=== PATIENT | female | born 1970 | race Caucasian/White ===

== ENCOUNTER 2024-04-01 16:29 | Inpatient (IN) | payer OTHER, SELFPAY ==
[2024-04-01] VITALS (29 sets, daily range): BP systolic 147–180; BP diastolic 92–115; PULSE 94–110; TEMP 36.9–37.2; O2SAT 97–100; BMI 40.1
--- NOTE | 2024-04-01 16:35 | ECG_ITS ---
[facility] Test Date: 2024-04-01 Pat Name: Chelsie Jolly Department: Room: - Gender: Female [employer] Instrument [employer]r: : 1970 Requested By: BENY HERNANDEZ Order Number: [id number] Reading MD: ELYSSA BECK Measurements Intervals [place] Rate: 104 P: -27 NV: 108 QRS: 31 QRSD: 78 T: 33 QT: 374 QTc: 434 Interpretive Statements 1120 Sinus tachycardia 2210 Short NV interval 9150 abnormal ECG Compared to ECG 08/26/2022 10:43:14 Short NV interval now present Sinus rhythm no longer present Electronically Signed On 04-02-2024 13:19:58 EDT by ELYSSA BECK
--- NOTE | 2024-04-01 16:35 | XR_ITS ---
The [address] [address] Patient Name: RAMON VALDES MRN: [id number] date: 1970 Sex: F Assigned Patient Location: ER Current Patient Location: ED.MAIN Accession/Order Number: [id number] Exam Date: 04/01/2024 16:55 Report Date: 04/01/2024 17:48 At the request of: MICHELLE ROTH Procedure: XR chest 1V CXR HISTORY: Dizziness. COMPARISON: None. TECHNIQUE: 1 view chest submitted for review. FINDINGS: The lungs are adequately expanded without evidence of acute infiltrate or effusion. The cardiac silhouette measures within normal. Pulmonary vascularity is unremarkable. Osseous structures do not demonstrate any acute abnormality. XR/XR chest 1V IMPRESSION: No plain film evidence for acute cardiopulmonary disease. Electronically authenticated by: OLIVIA SAMANIEGO Date: 04/01/2024 17:48
--- NOTE | 2024-04-01 16:36 | CT_ITS ---
[address] [address] Patient Name: RAMON VALDES MRN: [id number] date: 1970 Sex: F Assigned Patient Location: ER Current Patient Location: .[facility] Accession/Order Number: [id number] Exam Date: 04/01/2024 16:55 Report Date: 04/01/2024 17:27 At the request of: MICHELLE ROTH Procedure: CT head/brain wo con EXAM: CT head/brain wo con HISTORY: Syncope COMPARISON: CT brain 12/29/2022. TECHNIQUE: Axial CT scans through the head were obtained without IV contrast administration. Dose reduction techniques were achieved by using: automated exposure control and/or adjustment of mA and /or kV according to patient size and/or use of iterative reconstruction technique. FINDINGS: There is no evidence of acute intracranial hemorrhage or abnormal extra-axial fluid collection. No mass effect or midline shift is seen. There is no evidence of large acute territorial infarction. There is no hydrocephalus. To the limit of CT, the posterior fossa appears unremarkable. There is mildly enlarged empty sella. No definite acute fracture is identified. Soft tissues are unremarkable. The visualized orbits show no abnormality. The visualized paranasal sinuses show no air-fluid level. Mastoid air cells are clear. CT/CT head/brain wo con IMPRESSION: No CT evidence of acute intracranial abnormality. Empty sella. Electronically authenticated by: EVIN COLEU Date: 04/01/2024 17:27
--- NOTE | 2024-04-01 16:36 | ED.GENADUL1 ---
Documented by User: MARION Ruiz 04/01/24 21:58 HPI HPI - General Adult General Chief complaint: Nausea/Vomiting/Diarrhea Stated complaint: DIZZINESS, LIGHTHEADEDNESS Time Seen by Provider: 04/01/24 16:35 Source: patient History of Present Illness HPI narrative: Patient is a 54-year-old female With a history of hypertension, insulin-dependent diabetes, GERD brought to the emergency department by ambulance for the evaluation of lightheadedness, nausea and vomiting for the last 2 days. She has a history of insulin-dependent diabetes. She is visibly anxious and hyperventilating on arrival by EMS. EMS reports that the patient has not been taking her medications for the last 2 days due to the nausea and vomiting with generalized weakness. She was apparently hypotensive on their arrival. Patient states that she tried to give herself insulin today but could not because she keeps passing out. She denies chest pain, shortness of breath, fevers. No upper respiratory symptoms. She has not had any diarrhea. She states she is urinating without difficulty. No sick contacts in the home. She has a history of gastroparesis. She denies abdominal pain. Related Data Home Medications ?Medication ?Instructions ?Recorded ?Confirmed amitriptyline 10 mg tablet 10 mg PO .qhs 04/01/24 04/02/24 aspirin 81 mg tablet,delayed 81 mg PO .qd 04/01/24 04/02/24 release atorvastatin 10 mg tablet 10 mg PO .qd 04/01/24 04/02/24 cyclobenzaprine 10 mg tablet 10 mg PO BID PRN muscle spasm 04/01/24 04/02/24 docusate sodium 100 mg capsule 100 mg PO .qd 04/01/24 04/02/24 duloxetine 60 mg capsule,delayed 60 mg PO .amhs 04/01/24 04/02/24 release gabapentin 600 mg tablet 600 mg PO .q6 04/01/24 04/02/24 insulin glargine 100 unit/mL (3 35 unit subcut BID 04/01/24 04/02/24 mL) subcutaneous pen (Lantus Solostar U-100 Insulin) insulin lispro 100 unit/mL 10 unit subcut TIDWM 04/01/24 04/02/24 subcutaneous pen lisinopril 20 mg tablet 20 mg PO .qd 04/01/24 04/02/24 loratadine 10 mg tablet 10 mg PO .qd 04/01/24 04/02/24 metoclopramide HCl 10 mg tablet 10 mg PO .qd 04/01/24 04/02/24 omeprazole 20 mg capsule,delayed 20 mg PO .qd 04/01/24 04/02/24 release quetiapine 50 mg tablet 100 mg PO .qhs 04/01/24 04/02/24 tizanidine 4 mg tablet 4 mg PO .qhs PRN muscle spasticity 04/01/24 04/02/24 Previous Rx's ?Medication ?Instructions ?Recorded cefdinir 300 mg capsule 600 mg (2 x 300 mg) PO DAILY #20 04/05/24 caps metoprolol tartrate 50 mg tablet 50 mg PO BID #60 tabs 04/05/24 Allergies Allergy/AdvReac Type Severity Reaction Status Date / Time mustard Allergy Severe Anaphylaxis Verified 04/01/24 16:45 brown coating on advil Allergy Swelling Uncoded 04/01/24 16:45 of Lip/Tongue/Throat Opioid HPI Opioid Management Most Recent Opioid Data: Last Pain Scale 4 04/03/24 01:06 Last Pain Assessment 04/05/24 11:54 Last MAR Pain Assessment 04/04/24 19:46 Last ORT Total Score 0 04/02/24 12:04 Last ORT Risk Category Low Risk 04/02/24 12:04 Review of Systems ROS Constitutional Denies: fever or chills Ears, nose, mouth, and throat Denies: throat pain or nasal congestion Cardiovascular Denies: chest pain Respiratory Denies: shortness of breath or cough Gastrointestinal Reports: nausea and vomiting; Denies: abdominal pain or diarrhea Genitourinary Denies: painful urination Musculoskeletal Denies: back pain Integumentary/Breast Denies: rash Psychiatric Reports: anxiety Hematologic/Lymphatic Denies: easy bruising or easy bleeding [facility] Medical History Tobacco abuse ?Z72.0 - Tobacco use (ICD-10) Family History Other Family history of diabetes mellitus Heart disease Social History Highest level of school completed/degree received: high school graduate Exam Narrative Exam Narrative: Gen.: Awake, alert, in no distress Head: Normocephalic, atraumatic ENT: Moist mucous membranes Respiratory: No respiratory distress, lungs clear bilaterally Cardio: Regular rate and rhythm Gastrointestinal: Abdomen is soft, nondistended and nontender to palpation Extremities: Moves extremities equally Psych: Anxious, hyperventilating female Neuro: No focal neuro deficit Skin: Warm, dry, intact Constitutional Vital Signs, click to edit/add: Last Vital Signs Temp 98.1 F 04/05/24 11:54 Pulse 67 04/05/24 11:54 Resp 18 04/05/24 11:54 BP 116/74 04/05/24 11:54 Pulse Ox 95 04/05/24 11:54 O2 Del Method Room Air 04/05/24 11:54 Course Course Hospital Course: Patient admitted through the emergency room with severe fatigue, general myalgias, laboratory evaluation consistent with severe sepsis. He was started on IV antibiotics. She had elevated high-sensitivity troponin. Case was discussed with cardiology. With normal EKG they felt this was more likely related to the infectious process. Demand ischemia. She was placed on heparin drip however until a stress test was completed yesterday. She did pass the stress test but had significant reaction to the test itself. Significant hypertension. Difficult to maintain yesterday. Approximately 6 hours ago patient finally feels much improved. Her blood pressure is back to baseline. Her white cell count was significantly elevated this morning. This is possibly stress reaction from yesterday's events. Repeating CBC later this morning. If CBC is improving patient feels back to much improved but still somewhat fatigued, for her normal self. At this point she will be likely be discharged home later today if her white blood cell count is improving. Medications see list. Cultures pending for urinalysis can be followed up as an outpatient with her PCP. See PCP within the next week. Vital Signs Vital signs: Vital Signs Temperature 98.5 F 04/01/24 16:34 Pulse Rate 107 H 04/01/24 16:34 Respiratory Rate 32 H 04/01/24 16:34 Blood Pressure 147/92 H 04/01/24 16:34 Pulse Oximetry 100 04/01/24 16:34 Oxygen Delivery Method Room Air 04/01/24 16:34 Temperature 98.1 F 04/05/24 11:54 Pulse Rate 67 07/16/24 11:54 Respiratory Rate 18 04/05/24 11:54 Blood Pressure 116/74 04/05/24 11:54 Pulse Oximetry 95 04/05/24 11:54 Oxygen Delivery Method Room Air 04/05/24 11:54 Medical Decision Making MDM Narrative Medical decision making narrative: 2143: Arrival to the emergency department, patient was actively hyperventilating and anxious. She was given IV fluids, a total of 2 L. Blood pressure is stable in the ER, tachycardia has improved, she was given IV Reglan, Pepcid and Ativan. CT of the brain, chest x-ray, EKG, lab studies were obtained. We did have significant difficulty establishing IV access for the patient and she required 2 ultrasound-guided IVs as one of the IVs infiltrated. Blood culture obtained, procalcitonin was not able to be run due to a machine issue. Initial lactic acid was elevated at 5.8 and repeat lactic acid has decreased. Patient with no persistent hypotension. She has no complaints of chest pain or shortness of breath in the ER. Due to syncopal episodes at home associated with low blood pressure and elevated troponin, patient was sent for CT angio of the chest which is unremarkable as well as CT abdomen pelvis without contrast which is also unremarkable. I discussed the case with NICKIE Jaime for the hospitalist staff. Due to the elevated troponin and syncopal episodes with low blood pressure, she requested the patient be transferred to a higher level of care with cardiology services. Patient request transfer to [facility] and transfer is initiated to the hospitalist service at this time. We contacted [facility], at this time they are discharge dependent and may not have a bed until the morning. I discussed this with the patient and she would still like to go to [facility] and not be transferred elsewhere. She understands she will not have a bed until the morning and be able to transfer. She verbalizes understanding and states this is her preference. We will order gentle fluids for the patient with repeat troponins overnight. Case turned over to attending physician at this time for transfer SUPERVISED APC VISIT, PHYSICIAN ATTESTATION: Based on the medical record the care appears appropriate. ? Medical Records Medical records reviewed: Yes I reviewed the patient's medical records Lab Data Lab results reviewed: Yes I reviewed the patient's lab results Labs: Lab Results 04/01/24 04/01/24 04/01/24 Range/Units 17:30 18:00 20:15 WBC 21.9 H (4.0-11.0) 10^3/uL RBC 4.17 L (4.20-5.40) 10^6/uL Hgb 11.8 L (12.0-16.0) g/dL Hct 36.1 (36.0-48.0) % MCV 86.6 (81.0-99.0) fL MCH 28.3 (26.7-34.0) pg MCHC 32.7 (29.9-35.2) g/dL RDW 17.0 H (11.0-15.0) % Plt Count 473 H (150-450) 10^3/uL MPV 9.6 (9.5-13.5) fL Neut % (Auto) 74.9 (43.0-75.0) % Lymph % (Auto) 17.9 L (20.5-60.0) % [place] % (Auto) 6.5 (1.7-12.0) % Eos % (Auto) 0.0 L (0.9-7.0) % Baso % (Auto) 0.3 (0.2-2.0) % Neut # (Auto) 16.4 H (1.4-6.5) 10^3/uL Lymph # (Auto) 3.9 H (1.2-3.8) 10^3/uL [place] # (Auto) 1.4 H (0.3-0.8) 10^3/uL Eos # (Auto) 0.0 (0.0-0.7) 10^3/uL Baso # (Auto) 0.1 (0.0-0.1) 10^3/uL Abs Immat Gran (auto) 0.09 H (0.00-0.03) 10^3/uL Imm/Tot Granulo (auto) 0.4 (0.0-0.5) % PT 12.3 H (9.0-11.6) sec INR 1.18 APTT (22.3-36.2) sec VBG pH 7.594 H (7.330-7.430) VBG pCO2 24.3 L (40.0-52.0) mmHg Sodium 136 (136-145) mmol/L Potassium 3.4 L (3.5-5.1) mmol/L Chloride 96 L (98-107) mmol/L Carbon Dioxide 26.2 (21.0-32.0) mmol/L Anion Gap 17.2 BUN 19.0 H (7.0-18.0) mg/dL Creatinine 1.10 H (0.55-1.02) mg/dL Est GFR ( Amer) >60 (>=60) Est GFR (Non-Af Amer) 52 L (>=60) BUN/Creatinine Ratio 17.3 Glucose 334 H (74-106) mg/dL Lactate 5.8 H* (0.4-2.0) mmol/L Calcium 8.7 (8.5-10.1) mg/dL Magnesium (1.8-2.4) mg/dL Total Bilirubin 0.6 (0.2-1.0) mg/dL AST 14 L (15-37) U/L ALT 30 (14-59) U/L Alkaline Phosphatase 130 H (46-116) U/L Troponin I High Sens 156.8 H* (4.0-51.3) pg/mL NT-Pro-B Natriuret Pep (<=900.0) pg/mL Total Protein 7.4 (6.4-8.2) g/dL Albumin 3.2 L (3.4-5.0) g/dL Globulin 4.2 g/dL Albumin/Globulin Ratio 0.8 Lipase 31.0 (16.0-77.0) U/L TSH 2.843 (0.358-3.740) uIU/mL Urine Color Yellow (YELLOW) Urine Clarity Clear (CLEAR) Urine pH 6.0 (5.0-9.0) Ur Specific [place] 1.020 (1.005-1.025) Urine Protein 100 A (NEG/TRACE) mg/dL Urine Glucose (UA) >=1000 A (NEGATIVE) mg/dL Urine Ketones 15 A (NEGATIVE) mg/dL Urine Occult Blood Trace-l (NEGATIVE) Urine Nitrite Negative (NEGATIVE) Urine Bilirubin Negative (NEGATIVE) Urine Urobilinogen 1.0 (0.2-1.0) EU/dL Ur Leukocyte Esterase Negative (NEGATIVE) Urine RBC None seen (0-2) #/HPF Urine WBC 2-5 A (NONE SEEN) #/HPF Ur Squamous Epith Cells Moderate A (NONE/RARE) #/LPF Urine Crystals None seen (None Seen) #/HPF Amorphous Sediment Few Urine Bacteria None seen (NONE SEEN) #/HPF Urine Casts Seen A (NONE SEEN) #/LPF Hyaline Casts Many Fine Granular Casts Few Urine Mucus Small A (NONE SEEN) Urine Yeast Seen A (NONE SEEN) Ur Culture Indicated? No Acetone, Qual Negative (NEGATIVE) Monoscreen (NEGATIVE) POC Glucose (74-106) mg/dL 04/01/24 04/01/24 04/02/24 Range/Units 20:22 23:15 03:23 WBC (4.0-11.0) 10^3/uL RBC (4.20-5.40) 10^6/uL Hgb (12.0-16.0) g/dL Hct (36.0-48.0) % MCV (81.0-99.0) fL MCH (26.7-34.0) pg MCHC (29.9-35.2) g/dL RDW (11.0-15.0) % Plt Count (150-450) 10^3/uL MPV (9.5-13.5) fL Neut % (Auto) (43.0-75.0) % Lymph % (Auto) (20.5-60.0) % [place] % (Auto) (1.7-12.0) % Eos % (Auto) (0.9-7.0) % Baso % (Auto) (0.2-2.0) % Neut # (Auto) (1.4-6.5) 10^3/uL Lymph # (Auto) (1.2-3.8) 10^3/uL [place] # (Auto) (0.3-0.8) 10^3/uL Eos # (Auto) (0.0-0.7) 10^3/uL Baso # (Auto) (0.0-0.1) 10^3/uL Abs Immat Gran (auto) (0.00-0.03) 10^3/uL Imm/Tot Granulo (auto) (0.0-0.5) % PT (9.0-11.6) sec INR APTT (22.3-36.2) sec VBG pH (7.330-7.430) VBG pCO2 (40.0-52.0) mmHg Sodium (136-145) mmol/L Potassium (3.5-5.1) mmol/L Chloride (98-107) mmol/L Carbon Dioxide (21.0-32.0) mmol/L Anion Gap BUN (7.0-18.0) mg/dL Creatinine (0.55-1.02) mg/dL Est GFR ( Amer) (>=60) Est GFR (Non-Af Amer) (>=60) BUN/Creatinine Ratio Glucose (74-106) mg/dL Lactate 4.3 H* 4.6 H* (0.4-2.0) mmol/L Calcium (8.5-10.1) mg/dL Magnesium (1.8-2.4) mg/dL Total Bilirubin (0.2-1.0) mg/dL AST (15-37) U/L ALT (14-59) U/L Alkaline Phosphatase (46-116) U/L Troponin I High Sens 155.3 H* 145.3 H* (4.0-51.3) pg/mL NT-Pro-B Natriuret Pep (<=900.0) pg/mL Total Protein (6.4-8.2) g/dL Albumin (3.4-5.0) g/dL Globulin g/dL Albumin/Globulin Ratio Lipase (16.0-77.0) U/L TSH (0.358-3.740) uIU/mL Urine Color (YELLOW) Urine Clarity (CLEAR) Urine pH (5.0-9.0) Ur Specific [place] (1.005-1.025) Urine Protein (NEG/TRACE) mg/dL Urine Glucose (UA) (NEGATIVE) mg/dL Urine Ketones (NEGATIVE) mg/dL Urine Occult Blood (NEGATIVE) Urine Nitrite (NEGATIVE) Urine Bilirubin (NEGATIVE) Urine Urobilinogen (0.2-1.0) EU/dL Ur Leukocyte Esterase (NEGATIVE) Urine RBC (0-2) #/HPF Urine WBC (NONE SEEN) #/HPF Ur Squamous Epith Cells (NONE/RARE) #/LPF Urine Crystals (None Seen) #/HPF Amorphous Sediment Urine Bacteria (NONE SEEN) #/HPF Urine Casts (NONE SEEN) #/LPF Hyaline Casts Fine Granular Casts Urine Mucus (NONE SEEN) Urine Yeast (NONE SEEN) Ur Culture Indicated? Acetone, Qual (NEGATIVE) Monoscreen (NEGATIVE) POC Glucose 178 H (74-106) mg/dL 04/02/24 04/02/24 04/02/24 Range/Units 06:23 07:30 07:32 WBC (4.0-11.0) 10^3/uL RBC (4.20-5.40) 10^6/uL Hgb (12.0-16.0) g/dL Hct (36.0-48.0) % MCV (81.0-99.0) fL MCH (26.7-34.0) pg MCHC (29.9-35.2) g/dL RDW (11.0-15.0) % Plt Count (150-450) 10^3/uL MPV (9.5-13.5) fL Neut % (Auto) (43.0-75.0) % Lymph % (Auto) (20.5-60.0) % [place] % (Auto) (1.7-12.0) % Eos % (Auto) (0.9-7.0) % Baso % (Auto) (0.2-2.0) % Neut # (Auto) (1.4-6.5) 10^3/uL Lymph # (Auto) (1.2-3.8) 10^3/uL [place] # (Auto) (0.3-0.8) 10^3/uL Eos # (Auto) (0.0-0.7) 10^3/uL Baso # (Auto) (0.0-0.1) 10^3/uL Abs Immat Gran (auto) (0.00-0.03) 10^3/uL Imm/Tot Granulo (auto) (0.0-0.5) % PT (9.0-11.6) sec INR APTT (22.3-36.2) sec VBG pH (7.330-7.430) VBG pCO2 (40.0-52.0) mmHg Sodium (136-145) mmol/L Potassium (3.5-5.1) mmol/L Chloride (98-107) mmol/L Carbon Dioxide (21.0-32.0) mmol/L Anion Gap BUN (7.0-18.0) mg/dL Creatinine (0.55-1.02) mg/dL Est GFR ( Amer) (>=60) Est GFR (Non-Af Amer) (>=60) BUN/Creatinine Ratio Glucose (74-106) mg/dL Lactate 1.7 (0.4-2.0) mmol/L Calcium (8.5-10.1) mg/dL Magnesium (1.8-2.4) mg/dL Total Bilirubin (0.2-1.0) mg/dL AST (15-37) U/L ALT (14-59) U/L Alkaline Phosphatase (46-116) U/L Troponin I High Sens (4.0-51.3) pg/mL NT-Pro-B Natriuret Pep (<=900.0) pg/mL Total Protein (6.4-8.2) g/dL Albumin (3.4-5.0) g/dL Globulin g/dL Albumin/Globulin Ratio Lipase (16.0-77.0) U/L TSH (0.358-3.740) uIU/mL Urine Color (YELLOW) Urine Clarity (CLEAR) Urine pH (5.0-9.0) Ur Specific [place] (1.005-1.025) Urine Protein (NEG/TRACE) mg/dL Urine Glucose (UA) (NEGATIVE) mg/dL Urine Ketones (NEGATIVE) mg/dL Urine Occult Blood (NEGATIVE) Urine Nitrite (NEGATIVE) Urine Bilirubin (NEGATIVE) Urine Urobilinogen (0.2-1.0) EU/dL Ur Leukocyte Esterase (NEGATIVE) Urine RBC (0-2) #/HPF Urine WBC (NONE SEEN) #/HPF Ur Squamous Epith Cells (NONE/RARE) #/LPF Urine Crystals (None Seen) #/HPF Amorphous Sediment Urine Bacteria (NONE SEEN) #/HPF Urine Casts (NONE SEEN) #/LPF Hyaline Casts Fine Granular Casts Urine Mucus (NONE SEEN) Urine Yeast (NONE SEEN) Ur Culture Indicated? Acetone, Qual (NEGATIVE) Monoscreen (NEGATIVE) POC Glucose 295 H 277 H (74-106) mg/dL 07/13/24 07/13/24 07/13/24 Range/Units 08:31 09:43 11:57 WBC 23.5 H (4.0-11.0) 10^3/uL RBC 4.20 (4.20-5.40) 10^6/uL Hgb 11.8 L (12.0-16.0) g/dL Hct 36.7 (36.0-48.0) % MCV 87.4 (81.0-99.0) fL MCH 28.1 (26.7-34.0) pg MCHC 32.2 (29.9-35.2) g/dL RDW 17.2 H (11.0-15.0) % Plt Count 477 H (150-450) 10^3/uL MPV 10.3 (9.5-13.5) fL Neut % (Auto) 82.4 H (43.0-75.0) % Lymph % (Auto) 12.5 L (20.5-60.0) % [place] % (Auto) 4.0 (1.7-12.0) % Eos % (Auto) 0.2 L (0.9-7.0) % Baso % (Auto) 0.3 (0.2-2.0) % Neut # (Auto) 19.4 H (1.4-6.5) 10^3/uL Lymph # (Auto) 3.0 (1.2-3.8) 10^3/uL [place] # (Auto) 0.9 H (0.3-0.8) 10^3/uL Eos # (Auto) 0.1 (0.0-0.7) 10^3/uL Baso # (Auto) 0.1 (0.0-0.1) 10^3/uL Abs Immat Gran (auto) 0.13 H (0.00-0.03) 10^3/uL Imm/Tot Granulo (auto) 0.6 H (0.0-0.5) % PT 11.6 (9.0-11.6) sec INR 1.11 APTT 23.6 (22.3-36.2) sec VBG pH (7.330-7.430) VBG pCO2 (40.0-52.0) mmHg Sodium 135 L (136-145) mmol/L Potassium 3.4 L (3.5-5.1) mmol/L Chloride 101 (98-107) mmol/L Carbon Dioxide 22.9 (21.0-32.0) mmol/L Anion Gap 14.5 BUN 11.0 (7.0-18.0) mg/dL Creatinine 0.75 (0.55-1.02) mg/dL Est GFR ( Amer) >60 (>=60) Est GFR (Non-Af Amer) >60 (>=60) BUN/Creatinine Ratio 14.7 Glucose 273 H (74-106) mg/dL Lactate (0.4-2.0) mmol/L Calcium 7.8 L (8.5-10.1) mg/dL Magnesium 1.4 L (1.8-2.4) mg/dL Total Bilirubin 0.5 (0.2-1.0) mg/dL AST 58 H (15-37) U/L ALT 47 (14-59) U/L Alkaline Phosphatase 112 (46-116) U/L Troponin I High Sens 176.3 H* 133.2 H* (4.0-51.3) pg/mL NT-Pro-B Natriuret Pep 1577.0 H* (<=900.0) pg/mL Total Protein 6.6 (6.4-8.2) g/dL Albumin 2.8 L (3.4-5.0) g/dL Globulin 3.8 g/dL Albumin/Globulin Ratio 0.7 Lipase (16.0-77.0) U/L TSH (0.358-3.740) uIU/mL Urine Color (YELLOW) Urine Clarity (CLEAR) Urine pH (5.0-9.0) Ur Specific [place] (1.005-1.025) Urine Protein (NEG/TRACE) mg/dL Urine Glucose (UA) (NEGATIVE) mg/dL Urine Ketones (NEGATIVE) mg/dL Urine Occult Blood (NEGATIVE) Urine Nitrite (NEGATIVE) Urine Bilirubin (NEGATIVE) Urine Urobilinogen (0.2-1.0) EU/dL Ur Leukocyte Esterase (NEGATIVE) Urine RBC (0-2) #/HPF Urine WBC (NONE SEEN) #/HPF Ur Squamous Epith Cells (NONE/RARE) #/LPF Urine Crystals (None Seen) #/HPF Amorphous Sediment Urine Bacteria (NONE SEEN) #/HPF Urine Casts (NONE SEEN) #/LPF Hyaline Casts Fine Granular Casts Urine Mucus (NONE SEEN) Urine Yeast (NONE SEEN) Ur Culture Indicated? Acetone, Qual (NEGATIVE) Monoscreen Negative (NEGATIVE) POC Glucose (74-106) mg/dL Imaging Data CT scan - head: Attestation: I have reviewed the pertinent imaging results. Radiologist's impression: ITS Impressions Chest X-Ray 04/01/24 16:35 IMPRESSION: No plain film evidence for acute cardiopulmonary disease. Electronically authenticated by: OLIVIA SAMANIEGO Date: 04/01/2024 17:[address] 04/01/24 16:36 IMPRESSION: No CT evidence of acute intracranial abnormality. Empty sella. Electronically authenticated by: EVIN FOY Date: 04/01/2024 17:27 Abdomen/Pelvis CT 04/01/24 19:02 Impression: 1. No evidence of acute abdominal or pelvic process. 2. Colonic diverticulosis with no evidence of diverticulitis. 3. A 5 mm nodule in left lower lobe of the lung. Follow-up in six-month by low dose CT of the chest is recommended. 4. Degenerative disc disease at L5-S1 level. Electronically authenticated by: RAKESH RANGEL Date: 04/01/2024 20:40 Chest CTA 04/01/24 19:02 IMPRESSION: Normal CTA of the chest without evidence of pulmonary emboli. Electronically authenticated by: XAVIER FULTON Date: 04/01/2024 20:49 ECG Data Attestation: I personally reviewed and interpreted this ECG as follows: (Sinus tachycardia at a rate of 104, no acute ST elevation or ectopy. EKG reviewed by attending physician) Discharge Plan Discharge Chief Complaint: Nausea/Vomiting/Diarrhea Clinical Impression: Acute dehydration, SIRS (systemic inflammatory response syndrome), Elevated troponin, Syncope, Nausea & vomiting Patient Disposition: Admitted As Inpatient Time of Disposition Decision: 10:20 Condition: Good Discharge Date/Time: 04/02/24 12:00 Documented by User: Selma Mustafa MD 04/02/24 10:20 HPI HPI - General Adult General Chief complaint: Nausea/Vomiting/Diarrhea Stated complaint: DIZZINESS, LIGHTHEADEDNESS Time Seen by Provider: 04/01/24 16:35 Related Data Home Medications ?Medication ?Instructions ?Recorded ?Confirmed amitriptyline 10 mg tablet 10 mg PO .qhs 04/01/24 04/02/24 aspirin 81 mg tablet,delayed 81 mg PO .qd 04/01/24 04/02/24 release atorvastatin 10 mg tablet 10 mg PO .qd 04/01/24 04/02/24 cyclobenzaprine 10 mg tablet 10 mg PO BID PRN muscle spasm 04/01/24 04/02/24 docusate sodium 100 mg capsule 100 mg PO .qd 04/01/24 04/02/24 duloxetine 60 mg capsule,delayed 60 mg PO .amhs 04/01/24 04/02/24 release gabapentin 600 mg tablet 600 mg PO .q6 04/01/24 04/02/24 insulin glargine 100 unit/mL (3 35 unit subcut BID 04/01/24 04/02/24 mL) subcutaneous pen (Lantus Solostar U-100 Insulin) insulin lispro 100 unit/mL 10 unit subcut TIDWM 04/01/24 04/02/24 subcutaneous pen lisinopril 20 mg tablet 20 mg PO .qd 04/01/24 04/02/24 loratadine 10 mg tablet 10 mg PO .qd 04/01/24 04/02/24 metoclopramide HCl 10 mg tablet 10 mg PO .qd 04/01/24 04/02/24 omeprazole 20 mg capsule,delayed 20 mg PO .qd 04/01/24 04/02/24 release quetiapine 50 mg tablet 100 mg PO .qhs 04/01/24 04/02/24 tizanidine 4 mg tablet 4 mg PO .qhs PRN muscle spasticity 04/01/24 04/02/24 Previous Rx's ?Medication ?Instructions ?Recorded cefdinir 300 mg capsule 600 mg (2 x 300 mg) PO DAILY #20 04/05/24 caps metoprolol tartrate 50 mg tablet 50 mg PO BID #60 tabs 04/05/24 Allergies Allergy/AdvReac Type Severity Reaction Status Date / Time mustard Allergy Severe Anaphylaxis Verified 04/01/24 16:45 brown coating on advil Allergy Swelling Uncoded 04/01/24 16:45 of Lip/Tongue/Throat Opioid HPI Opioid Management Most Recent Opioid Data: Last Pain Scale 4 04/03/24 01:06 Last Pain Assessment 04/05/24 11:54 Last MAR Pain Assessment 04/04/24 19:46 Last ORT Total Score 0 04/02/24 12:04 Last ORT Risk Category Low Risk 04/02/24 12:04 PFSH PFSH Medical History Tobacco abuse ?Z72.0 - Tobacco use (ICD-10) Family History Other Family history of diabetes mellitus Heart disease Social History Highest level of school completed/degree received: high school graduate Exam Constitutional Vital Signs, click to edit/add: Last Vital Signs Temp 98.1 F 04/05/24 11:54 Pulse 67 04/05/24 11:54 Resp 18 04/05/24 11:54 BP 116/74 04/05/24 11:54 Pulse Ox 95 04/05/24 11:54 O2 Del Method Room Air 04/05/24 11:54 Course Course Hospital Course: Patient admitted through the emergency room with severe fatigue, general myalgias, laboratory evaluation consistent with severe sepsis. He was started on IV antibiotics. She had elevated high-sensitivity troponin. Case was discussed with cardiology. With normal EKG they felt this was more likely related to the infectious process. Demand ischemia. She was placed on heparin drip however until a stress test was completed yesterday. She did pass the stress test but had significant reaction to the test itself. Significant hypertension. Difficult to maintain yesterday. Approximately 6 hours ago patient finally feels much improved. Her blood pressure is back to baseline. Her white cell count was significantly elevated this morning. This is possibly stress reaction from yesterday's events. Repeating CBC later this morning. If CBC is improving patient feels back to much improved but still somewhat fatigued, for her normal self. At this point she will be likely be discharged home later today if her white blood cell count is improving. Medications see list. Cultures pending for urinalysis can be followed up as an outpatient with her PCP. See PCP within the next week. Vital Signs Vital signs: Vital Signs Temperature 98.5 F 04/01/24 16:34 Pulse Rate 107 H 04/01/24 16:34 Respiratory Rate 32 H 04/01/24 16:34 Blood Pressure 147/92 H 04/01/24 16:34 Pulse Oximetry 100 04/01/24 16:34 Oxygen Delivery Method Room Air 04/01/24 16:34 Temperature 98.1 F 04/05/24 11:54 Pulse Rate 67 04/05/24 11:54 Respiratory Rate 18 04/05/24 11:54 Blood Pressure 116/74 04/05/24 11:54 Pulse Oximetry 95 04/05/24 11:54 Oxygen Delivery Method Room Air 04/05/24 11:54 Medical Decision Making MDM Narrative Medical decision making narrative: 2143: Arrival to the emergency department, patient was actively hyperventilating and anxious. She was given IV fluids, a total of 2 L. Blood pressure is stable in the ER, tachycardia has improved, she was given IV Reglan, Pepcid and Ativan. CT of the brain, chest x-ray, EKG, lab studies were obtained. We did have significant difficulty establishing IV access for the patient and she required 2 ultrasound-guided IVs as one of the IVs infiltrated. Blood culture obtained, procalcitonin was not able to be run due to a machine issue. Initial lactic acid was elevated at 5.8 and repeat lactic acid has decreased. Patient with no persistent hypotension. She has no complaints of chest pain or shortness of breath in the ER. Due to syncopal episodes at home associated with low blood pressure and elevated troponin, patient was sent for CT angio of the chest which is unremarkable as well as CT abdomen pelvis without contrast which is also unremarkable. I discussed the case with NICKIE Jaime for the hospitalist staff. Due to the elevated troponin and syncopal episodes with low blood pressure, she requested the patient be transferred to a higher level of care with cardiology services. Patient request transfer to [facility] and transfer is initiated to the hospitalist service at this time. We contacted [facility], at this time they are discharge dependent and may not have a bed until the morning. I discussed this with the patient and she would still like to go to [facility] and not be transferred elsewhere. She understands she will not have a bed until the morning and be able to transfer. She verbalizes understanding and states this is her preference. We will order gentle fluids for the patient with repeat troponins overnight. Case turned over to attending physician at this time for transfer SUPERVISED APC VISIT, PHYSICIAN ATTESTATION: Based on the medical record the care appears appropriate. Dr Mustafa I received a care again at 7 AM today and the patient still awaiting further evaluation for possible transfer as needed Patient troponin has been trending down with a 156 going down to 143 but her blood pressure is elevated Initially the patient was controlled with labetalol and then Catapres but right now I will start the patient nicardipine drip which seem to be controlling the blood pressure adequately The patient troponin repeated shows a 176 result I spoke with the mumps developer , and he recommended that the patient will mostly need an echo as well as stress test to be done Thursday, and she does need transfer as per him , patient was started on heparin It was noted that the patient never had any chest pain at any time her EKG showed no acute coronary syndrome changes The patient care was discussed with and he agreed with admitting the patient to our facility Right now the patient blood pressure is 115/68 ? Lab Data Labs: Lab Results 04/01/24 04/01/24 04/01/24 Range/Units 17:30 18:00 20:15 WBC 21.9 H (4.0-11.0) 10^3/uL RBC 4.17 L (4.20-5.40) 10^6/uL Hgb 11.8 L (12.0-16.0) g/dL Hct 36.1 (36.0-48.0) % MCV 86.6 (81.0-99.0) fL MCH 28.3 (26.7-34.0) pg MCHC 32.7 (29.9-35.2) g/dL RDW 17.0 H (11.0-15.0) % Plt Count 473 H (150-450) 10^3/uL MPV 9.6 (9.5-13.5) fL Neut % (Auto) 74.9 (43.0-75.0) % Lymph % (Auto) 17.9 L (20.5-60.0) % [place] % (Auto) 6.5 (1.7-12.0) % Eos % (Auto) 0.0 L (0.9-7.0) % Baso % (Auto) 0.3 (0.2-2.0) % Neut # (Auto) 16.4 H (1.4-6.5) 10^3/uL Lymph # (Auto) 3.9 H (1.2-3.8) 10^3/uL [place] # (Auto) 1.4 H (0.3-0.8) 10^3/uL Eos # (Auto) 0.0 (0.0-0.7) 10^3/uL Baso # (Auto) 0.1 (0.0-0.1) 10^3/uL Abs Immat Gran (auto) 0.09 H (0.00-0.03) 10^3/uL Imm/Tot Granulo (auto) 0.4 (0.0-0.5) % PT 12.3 H (9.0-11.6) sec INR 1.18 APTT (22.3-36.2) sec VBG pH 7.594 H (7.330-7.430) VBG pCO2 24.3 L (40.0-52.0) mmHg Sodium 136 (136-145) mmol/L Potassium 3.4 L (3.5-5.1) mmol/L Chloride 96 L (98-107) mmol/L Carbon Dioxide 26.2 (21.0-32.0) mmol/L Anion Gap 17.2 BUN 19.0 H (7.0-18.0) mg/dL Creatinine 1.10 H (0.55-1.02) mg/dL Est GFR ( Amer) >60 (>=60) Est GFR (Non-Af Amer) 52 L (>=60) BUN/Creatinine Ratio 17.3 Glucose 334 H (74-106) mg/dL Lactate 5.8 H* (0.4-2.0) mmol/L Calcium 8.7 (8.5-10.1) mg/dL Magnesium (1.8-2.4) mg/dL Total Bilirubin 0.6 (0.2-1.0) mg/dL AST 14 L (15-37) U/L ALT 30 (14-59) U/L Alkaline Phosphatase 130 H (46-116) U/L Troponin I High Sens 156.8 H* (4.0-51.3) pg/mL NT-Pro-B Natriuret Pep (<=900.0) pg/mL Total Protein 7.4 (6.4-8.2) g/dL Albumin 3.2 L (3.4-5.0) g/dL Globulin 4.2 g/dL Albumin/Globulin Ratio 0.8 Lipase 31.0 (16.0-77.0) U/L TSH 2.843 (0.358-3.740) uIU/mL Urine Color Yellow (YELLOW) Urine Clarity Clear (CLEAR) Urine pH 6.0 (5.0-9.0) Ur Specific [place] 1.020 (1.005-1.025) Urine Protein 100 A (NEG/TRACE) mg/dL Urine Glucose (UA) >=1000 A (NEGATIVE) mg/dL Urine Ketones 15 A (NEGATIVE) mg/dL Urine Occult Blood Trace-l (NEGATIVE) Urine Nitrite Negative (NEGATIVE) Urine Bilirubin Negative (NEGATIVE) Urine Urobilinogen 1.0 (0.2-1.0) EU/dL Ur Leukocyte Esterase Negative (NEGATIVE) Urine RBC None seen (0-2) #/HPF Urine WBC 2-5 A (NONE SEEN) #/HPF Ur Squamous Epith Cells Moderate A (NONE/RARE) #/LPF Urine Crystals None seen (None Seen) #/HPF Amorphous Sediment Few Urine Bacteria None seen (NONE SEEN) #/HPF Urine Casts Seen A (NONE SEEN) #/LPF Hyaline Casts Many Fine Granular Casts Few Urine Mucus Small A (NONE SEEN) Urine Yeast Seen A (NONE SEEN) Ur Culture Indicated? No Acetone, Qual Negative (NEGATIVE) Monoscreen (NEGATIVE) POC Glucose (74-106) mg/dL 04/01/24 04/01/24 04/02/24 Range/Units 20:22 23:15 03:23 WBC (4.0-11.0) 10^3/uL RBC (4.20-5.40) 10^6/uL Hgb (12.0-16.0) g/dL Hct (36.0-48.0) % MCV (81.0-99.0) fL MCH (26.7-34.0) pg MCHC (29.9-35.2) g/dL RDW (11.0-15.0) % Plt Count (150-450) 10^3/uL MPV (9.5-13.5) fL Neut % (Auto) (43.0-75.0) % Lymph % (Auto) (20.5-60.0) % [place] % (Auto) (1.7-12.0) % Eos % (Auto) (0.9-7.0) % Baso % (Auto) (0.2-2.0) % Neut # (Auto) (1.4-6.5) 10^3/uL Lymph # (Auto) (1.2-3.8) 10^3/uL [place] # (Auto) (0.3-0.8) 10^3/uL Eos # (Auto) (0.0-0.7) 10^3/uL Baso # (Auto) (0.0-0.1) 10^3/uL Abs Immat Gran (auto) (0.00-0.03) 10^3/uL Imm/Tot Granulo (auto) (0.0-0.5) % PT (9.0-11.6) sec INR APTT (22.3-36.2) sec VBG pH (7.330-7.430) VBG pCO2 (40.0-52.0) mmHg Sodium (136-145) mmol/L Potassium (3.5-5.1) mmol/L Chloride (98-107) mmol/L Carbon Dioxide (21.0-32.0) mmol/L Anion Gap BUN (7.0-18.0) mg/dL Creatinine (0.55-1.02) mg/dL Est GFR ( Amer) (>=60) Est GFR (Non-Af Amer) (>=60) BUN/Creatinine Ratio Glucose (74-106) mg/dL Lactate 4.3 H* 4.6 H* (0.4-2.0) mmol/L Calcium (8.5-10.1) mg/dL Magnesium (1.8-2.4) mg/dL Total Bilirubin (0.2-1.0) mg/dL AST (15-37) U/L ALT (14-59) U/L Alkaline Phosphatase (46-116) U/L Troponin I High Sens 155.3 H* 145.3 H* (4.0-51.3) pg/mL NT-Pro-B Natriuret Pep (<=900.0) pg/mL Total Protein (6.4-8.2) g/dL Albumin (3.4-5.0) g/dL Globulin g/dL Albumin/Globulin Ratio Lipase (16.0-77.0) U/L TSH (0.358-3.740) uIU/mL Urine Color (YELLOW) Urine Clarity (CLEAR) Urine pH (5.0-9.0) Ur Specific [place] (1.005-1.025) Urine Protein (NEG/TRACE) mg/dL Urine Glucose (UA) (NEGATIVE) mg/dL Urine Ketones (NEGATIVE) mg/dL Urine Occult Blood (NEGATIVE) Urine Nitrite (NEGATIVE) Urine Bilirubin (NEGATIVE) Urine Urobilinogen (0.2-1.0) EU/dL Ur Leukocyte Esterase (NEGATIVE) Urine RBC (0-2) #/HPF Urine WBC (NONE SEEN) #/HPF Ur Squamous Epith Cells (NONE/RARE) #/LPF Urine Crystals (None Seen) #/HPF Amorphous Sediment Urine Bacteria (NONE SEEN) #/HPF Urine Casts (NONE SEEN) #/LPF Hyaline Casts Fine Granular Casts Urine Mucus (NONE SEEN) Urine Yeast (NONE SEEN) Ur Culture Indicated? Acetone, Qual (NEGATIVE) Monoscreen (NEGATIVE) POC Glucose 178 H (74-106) mg/dL 04/02/24 04/02/24 04/02/24 Range/Units 06:23 07:30 07:32 WBC (4.0-11.0) 10^3/uL RBC (4.20-5.40) 10^6/uL Hgb (12.0-16.0) g/dL Hct (36.0-48.0) % MCV (81.0-99.0) fL MCH (26.7-34.0) pg MCHC (29.9-35.2) g/dL RDW (11.0-15.0) % Plt Count (150-450) 10^3/uL MPV (9.5-13.5) fL Neut % (Auto) (43.0-75.0) % Lymph % (Auto) (20.5-60.0) % [place] % (Auto) (1.7-12.0) % Eos % (Auto) (0.9-7.0) % Baso % (Auto) (0.2-2.0) % Neut # (Auto) (1.4-6.5) 10^3/uL Lymph # (Auto) (1.2-3.8) 10^3/uL [place] # (Auto) (0.3-0.8) 10^3/uL Eos # (Auto) (0.0-0.7) 10^3/uL Baso # (Auto) (0.0-0.1) 10^3/uL Abs Immat Gran (auto) (0.00-0.03) 10^3/uL Imm/Tot Granulo (auto) (0.0-0.5) % PT (9.0-11.6) sec INR APTT (22.3-36.2) sec VBG pH (7.330-7.430) VBG pCO2 (40.0-52.0) mmHg Sodium (136-145) mmol/L Potassium (3.5-5.1) mmol/L Chloride (98-107) mmol/L Carbon Dioxide (21.0-32.0) mmol/L Anion Gap BUN (7.0-18.0) mg/dL Creatinine (0.55-1.02) mg/dL Est GFR ( Amer) (>=60) Est GFR (Non-Af Amer) (>=60) BUN/Creatinine Ratio Glucose (74-106) mg/dL Lactate 1.7 (0.4-2.0) mmol/L Calcium (8.5-10.1) mg/dL Magnesium (1.8-2.4) mg/dL Total Bilirubin (0.2-1.0) mg/dL AST (15-37) U/L ALT (14-59) U/L Alkaline Phosphatase (46-116) U/L Troponin I High Sens (4.0-51.3) pg/mL NT-Pro-B Natriuret Pep (<=900.0) pg/mL Total Protein (6.4-8.2) g/dL Albumin (3.4-5.0) g/dL Globulin g/dL Albumin/Globulin Ratio Lipase (16.0-77.0) U/L TSH (0.358-3.740) uIU/mL Urine Color (YELLOW) Urine Clarity (CLEAR) Urine pH (5.0-9.0) Ur Specific [place] (1.005-1.025) Urine Protein (NEG/TRACE) mg/dL Urine Glucose (UA) (NEGATIVE) mg/dL Urine Ketones (NEGATIVE) mg/dL Urine Occult Blood (NEGATIVE) Urine Nitrite (NEGATIVE) Urine Bilirubin (NEGATIVE) Urine Urobilinogen (0.2-1.0) EU/dL Ur Leukocyte Esterase (NEGATIVE) Urine RBC (0-2) #/HPF Urine WBC (NONE SEEN) #/HPF Ur Squamous Epith Cells (NONE/RARE) #/LPF Urine Crystals (None Seen) #/HPF Amorphous Sediment Urine Bacteria (NONE SEEN) #/HPF Urine Casts (NONE SEEN) #/LPF Hyaline Casts Fine Granular Casts Urine Mucus (NONE SEEN) Urine Yeast (NONE SEEN) Ur Culture Indicated? Acetone, Qual (NEGATIVE) Monoscreen (NEGATIVE) POC Glucose 295 H 277 H (74-106) mg/dL 04/02/24 04/02/24 04/02/24 Range/Units 08:31 09:43 11:57 WBC 23.5 H (4.0-11.0) 10^3/uL RBC 4.20 (4.20-5.40) 10^6/uL Hgb 11.8 L (12.0-16.0) g/dL Hct 36.7 (36.0-48.0) % MCV 87.4 (81.0-99.0) fL MCH 28.1 (26.7-34.0) pg MCHC 32.2 (29.9-35.2) g/dL RDW 17.2 H (11.0-15.0) % Plt Count 477 H (150-450) 10^3/uL MPV 10.3 (9.5-13.5) fL Neut % (Auto) 82.4 H (43.0-75.0) % Lymph % (Auto) 12.5 L (20.5-60.0) % [place] % (Auto) 4.0 (1.7-12.0) % Eos % (Auto) 0.2 L (0.9-7.0) % Baso % (Auto) 0.3 (0.2-2.0) % Neut # (Auto) 19.4 H (1.4-6.5) 10^3/uL Lymph # (Auto) 3.0 (1.2-3.8) 10^3/uL [place] # (Auto) 0.9 H (0.3-0.8) 10^3/uL Eos # (Auto) 0.1 (0.0-0.7) 10^3/uL Baso # (Auto) 0.1 (0.0-0.1) 10^3/uL Abs Immat Gran (auto) 0.13 H (0.00-0.03) 10^3/uL Imm/Tot Granulo (auto) 0.6 H (0.0-0.5) % PT 11.6 (9.0-11.6) sec INR 1.11 APTT 23.6 (22.3-36.2) sec VBG pH (7.330-7.430) VBG pCO2 (40.0-52.0) mmHg Sodium 135 L (136-145) mmol/L Potassium 3.4 L (3.5-5.1) mmol/L Chloride 101 (98-107) mmol/L Carbon Dioxide 22.9 (21.0-32.0) mmol/L Anion Gap 14.5 BUN 11.0 (7.0-18.0) mg/dL Creatinine 0.75 (0.55-1.02) mg/dL Est GFR ( Amer) >60 (>=60) Est GFR (Non-Af Amer) >60 (>=60) BUN/Creatinine Ratio 14.7 Glucose 273 H (74-106) mg/dL Lactate (0.4-2.0) mmol/L Calcium 7.8 L (8.5-10.1) mg/dL Magnesium 1.4 L (1.8-2.4) mg/dL Total Bilirubin 0.5 (0.2-1.0) mg/dL AST 58 H (15-37) U/L ALT 47 (14-59) U/L Alkaline Phosphatase 112 (46-116) U/L Troponin I High Sens 176.3 H* 133.2 H* (4.0-51.3) pg/mL NT-Pro-B Natriuret Pep 1577.0 H* (<=900.0) pg/mL Total Protein 6.6 (6.4-8.2) g/dL Albumin 2.8 L (3.4-5.0) g/dL Globulin 3.8 g/dL Albumin/Globulin Ratio 0.7 Lipase (16.0-77.0) U/L TSH (0.358-3.740) uIU/mL Urine Color (YELLOW) Urine Clarity (CLEAR) Urine pH (5.0-9.0) Ur Specific [place] (1.005-1.025) Urine Protein (NEG/TRACE) mg/dL Urine Glucose (UA) (NEGATIVE) mg/dL Urine Ketones (NEGATIVE) mg/dL Urine Occult Blood (NEGATIVE) Urine Nitrite (NEGATIVE) Urine Bilirubin (NEGATIVE) Urine Urobilinogen (0.2-1.0) EU/dL Ur Leukocyte Esterase (NEGATIVE) Urine RBC (0-2) #/HPF Urine WBC (NONE SEEN) #/HPF Ur Squamous Epith Cells (NONE/RARE) #/LPF Urine Crystals (None Seen) #/HPF Amorphous Sediment Urine Bacteria (NONE SEEN) #/HPF Urine Casts (NONE SEEN) #/LPF Hyaline Casts Fine Granular Casts Urine Mucus (NONE SEEN) Urine Yeast (NONE SEEN) Ur Culture Indicated? Acetone, Qual (NEGATIVE) Monoscreen Negative (NEGATIVE) POC Glucose (74-106) mg/dL Imaging Data CT scan - head: Radiologist's impression: ITS Impressions Chest X-Ray 04/01/24 16:35 IMPRESSION: No plain film evidence for acute cardiopulmonary disease. Electronically authenticated by: OLIVIA SAMANIEGO Date: 04/01/2024 17:[address] 04/01/24 16:36 IMPRESSION: No CT evidence of acute intracranial abnormality. Empty sella. Electronically authenticated by: EVIN FOY Date: 04/01/2024 17:27 Abdomen/Pelvis CT 04/01/24 19:02 Impression: 1. No evidence of acute abdominal or pelvic process. 2. Colonic diverticulosis with no evidence of diverticulitis. 3. A 5 mm nodule in left lower lobe of the lung. Follow-up in six-month by low dose CT of the chest is recommended. 4. Degenerative disc disease at L5-S1 level. Electronically authenticated by: RAKESH RANGEL Date: 04/01/2024 20:40 Chest CTA 04/01/24 19:02 IMPRESSION: Normal CTA of the chest without evidence of pulmonary emboli. Electronically authenticated by: XAVIER FULTON Date: 04/01/2024 20:49 Discharge Plan Discharge Chief Complaint: Nausea/Vomiting/Diarrhea Clinical Impression: Acute dehydration, SIRS (systemic inflammatory response syndrome), Elevated troponin, Syncope, Nausea & vomiting Patient Disposition: Admitted As Inpatient Time of Disposition Decision: 10:20 Condition: Good Discharge Date/Time: 04/02/24 12:00
[2024-04-01] MEDS: LORAZEPAM 2 MG/ML VIAL 0.5 MG IV (17:00)
[2024-04-01] MEDS: METOCLOPRAMIDE HCL 10 MG/2 ML VIAL IVP (17:00)
[2024-04-01] MEDS: FAMOTIDINE/PF 20 MG/2 ML VIAL IV (17:00)
[2024-04-01 17:55] LABS: PCO2 VBG 24.3 mmHg (40.0-52.0); pH VBG 7.594 (7.330-7.430)
[2024-04-01] MEDS: 0.9 % SODIUM CHLORIDE 1,000 ML 1000 ML IV (18:02)
[2024-04-01 18:16] LABS: INR 1.18; Prothrombin Time 12.3 sec (9.0-11.6)
[2024-04-01 18:21] LABS: Alanine Aminotransferase 30 U/L (14-59); Albumin Globulin Ratio 0.8; Albumin Level 3.2 g/dL (3.4-5.0); Alkaline Phosphatase 130 U/L (46-116); Anion Gap 17.2; Aspartate Amino Transferase 14 U/L (15-37); BUN Creatinine Ratio 17.3; Bilirubin Total 0.6 mg/dL (0.2-1.0); Calcium 8.7 mg/dL (8.5-10.1); Carbon Dioxide 26.2 mmol/L (21.0-32.0); Chloride 96 mmol/L (98-107); Estimated GFR (African America >60 (>=60); Estimated GFR (Non-African Ame 52 (>=60); Globulin 4.2 g/dL; Glucose 334 mg/dL (74-106); Potassium 3.4 mmol/L (3.5-5.1); Sodium 136 mmol/L (136-145); Total Protein 7.4 g/dL (6.4-8.2)
[2024-04-01 18:28] LABS: Lactate/Lactic Acid 5.8 mmol/L (0.4-2.0)
[2024-04-01 18:29] LABS: Thyroid Stimulating Hormone 2.843 uIU/mL (0.358-3.740)
[2024-04-01 18:32] LABS: Bilirubin Urine NEGATIVE (NEGATIVE); Blood Urine TRACE-L (NEGATIVE); Clarity Urine CLEAR (CLEAR); Color Urine YELLOW (YELLOW); Glucose Urine UA >=1000 mg/dL (NEGATIVE); Ketones Urine 15 mg/dL (NEGATIVE); Leukocyte Esterase Urine NEGATIVE (NEGATIVE); Nitrite Urine NEGATIVE (NEGATIVE); Protein Urine 100 mg/dL (NEG/TRACE)
[2024-04-01 18:43] LABS: Troponin I High Sensitivity 156.8 pg/mL (4.0-51.3)
[2024-04-01 18:54] LABS: Urine Microscopic Indicated YES
[2024-04-01 18:55] LABS: RBC Urine NONE SEEN #/HPF (0-2)
[2024-04-01 18:56] LABS: Amorphous Sediment Urine FEW; Bacteria Urine NONE SEEN #/HPF (NONE SEEN); Cast Seen? SEEN #/LPF (NONE SEEN); Crystals Seen? None Seen #/HPF (None Seen); Fine Granular Casts Urine FEW; Hyaline Casts Urine MANY; Mucus Urine SMALL (NONE SEEN); Squamous Epithelial Cell Urine MODERATE #/LPF (NONE/RARE); Urine Culture Indicated NO
--- NOTE | 2024-04-01 19:02 | CT_ITS ---
[address] [address] Patient Name: RAMON VALDES MRN: [id number] date: 1970 Sex: F Assigned Patient Location: ER Current Patient Location: Accession/Order Number: [id number] Exam Date: 04/01/2024 19:25 Report Date: 04/01/2024 20:40 At the request of: MICHELLE ROTH Procedure: CT abdomen pelvis wo con Indication: Nausea. Vomiting. Hypotension. Comparison: None Procedure: Axial images were made from the diaphragms through the symphysis pubis. No oral contrast or intravenous contrast was given. Dose reduction techniques were achieved by using automated exposure control and/or adjustment of mA and/or kV according to patient size and/or use of iterative reconstruction technique. Findings: Liver/Biliary System: No liver masses are seen. No intra or extrahepatic biliary dilatation. Status postcholecystectomy. Pancreas/Spleen: No evidence of acute pancreatitis. Pancreatic duct is not dilated. No splenomegaly. Kidneys/Adrenals: No renal or ureteral stones are seen. No hydronephrosis or hydroureter bilaterally. No adrenal nodules. Aorta/Vessels: No evidence of aortic aneurysm. Evaluation of vessels is limited due to lack of IV contrast. Bowel/Fluid/Nodes: No bowel dilatation or bowel wall thickening. No evidence of bowel obstruction. Colonic diverticulosis with no evidence of diverticulitis. Appendix was not identified, however no secondary signs of appendicitis present. No ascites or fluid collections. No adenopathy. Lung bases: A 5 mm nodule is seen in left lower lobe of the lung. No acute consolidation. No pleural effusions. Other findings: No aggressive osseous lesions are seen. Pelvis: No pelvic masses or adenopathy. No free fluid seen in the pelvis. Bladder, uterus and adnexa grossly unremarkable. Other Findings: No aggressive osseous lesions are seen. Degenerative disc disease at L5-S1 level. CT/CT abdomen pelvis wo con Impression: 1. No evidence of acute abdominal or pelvic process. 2. Colonic diverticulosis with no evidence of diverticulitis. 3. A 5 mm nodule in left lower lobe of the lung. Follow-up in six-month by low dose CT of the chest is recommended. 4. Degenerative disc disease at L5-S1 level. Electronically authenticated by: RAKESH RANGEL Date: 04/01/2024 20:40
--- NOTE | 2024-04-01 19:02 | CT_ITS ---
[address] [address] Patient Name: RAMON VALDES MRN: [id number] date: 1970 Sex: F Assigned Patient Location: ER Current Patient Location: .[facility] Accession/Order Number: [id number] Exam Date: 04/01/2024 19:25 Report Date: 04/01/2024 20:49 At the request of: MICHELLE ROTH Procedure: CT angio chest EXAMINATION: CT angio chest HISTORY: Syncope, hypotension COMPARISON: None. TECHNIQUE: Omnipaque 350, 100 mL given IV. Thin section axial scans obtained following IV contrast through the thorax with coronal and sagittal reformatted images. MIP (maximum intensity projection) images or 3D post processing was performed. Dose reduction techniques were achieved by using automated exposure control and/or adjustment of mA and/or kV according to patient size and/or use of iterative reconstruction technique. FINDINGS: Bolus opacification of the pulmonary arteries was adequate for purposes of diagnosis. There is no central, lobar, or segmental pulmonary arterial filling defect to suggest pulmonary embolus. The lungs are free of acute cardiopulmonary disease. No hilar or mediastinal lymphadenopathy. The heart and pericardium are unremarkable. There is no pericardial effusion. The thoracic aorta and great vessels are unremarkable. The pulmonary arteries are normal in appearance and configuration. There is no pleural effusion or mass. No pulmonary nodules or masses are identified. Normal adrenals. There is no body wall mass. There is no destructive osseous process. CT/CT angio chest IMPRESSION: Normal CTA of the chest without evidence of pulmonary emboli. Electronically authenticated by: XAVIER FULTON Date: 04/01/2024 20:49
[2024-04-01 19:03] LABS: Acetone NEGATIVE (NEGATIVE)
[2024-04-01 20:27] LABS: Basophils Absolute Auto 0.1 10^3/uL (0.0-0.1); Basophils Percent Auto 0.3 % (0.2-2.0); Hematocrit 36.1 % (36.0-48.0); Hemoglobin 11.8 g/dL (12.0-16.0); Immature Granulocytes Abs Auto 0.09 10^3/uL (0.00-0.03); Immature Granulocytes Pct Auto 0.4 % (0.0-0.5); Lymphocytes Absolute Auto 3.9 10^3/uL (1.2-3.8); Lymphocytes Percent Auto 17.9 % (20.5-60.0); Mean Corpuscular HGB Conc 32.7 g/dL (29.9-35.2); Mean Corpuscular Hemoglobin 28.3 pg (26.7-34.0); Mean Corpuscular Volume 86.6 fL (81.0-99.0); Mean Platelet Volume 9.6 fL (9.5-13.5); Monocytes Absolute Auto 1.4 10^3/uL (0.3-0.8); Monocytes Percent Auto 6.5 % (1.7-12.0); Neutrophils Absolute Auto 16.4 10^3/uL (1.4-6.5); Neutrophils Percent Auto 74.9 % (43.0-75.0); Platelet Count 473 10^3/uL (150-450); Red Blood Count 4.17 10^6/uL (4.20-5.40); White Blood Count 21.9 10^3/uL (4.0-11.0)
[2024-04-01 21:02] LABS: Lactate/Lactic Acid 4.3 mmol/L (0.4-2.0)
[2024-04-01 21:03] LABS: Troponin I High Sensitivity 155.3 pg/mL (4.0-51.3)
[2024-04-01] MEDS: 0.9 % SODIUM CHLORIDE 1,000 ML 100 ML IV (22:10)
[2024-04-01 23:49] LABS: Lactate/Lactic Acid 4.6 mmol/L (0.4-2.0)
[2024-04-01 23:50] LABS: Troponin I High Sensitivity 145.3 pg/mL (4.0-51.3)
[2024-04-02] VITALS (92 sets, daily range): BP systolic 98–208; BP diastolic 67–105; PULSE 74–125; TEMP 36.6–37; O2SAT 91–99; BMI 40.0
[2024-04-02 03:36] LABS: Glucometer 178 mg/dL (74-106)
[2024-04-02 06:24] LABS: Glucometer 295 mg/dL (74-106)
[2024-04-02] MEDS: CLONIDINE HCL 0.1 MG TABLET PO (07:03)
[2024-04-02] MEDS: ASPIRIN 81 MG TAB.CHEW 324 MG PO (07:30)
[2024-04-02] MEDS: NITROGLYCERIN 0.4 MG BOTTLE SL (07:31)
[2024-04-02 07:32] LABS: Glucometer 277 mg/dL (74-106)
[2024-04-02] MEDS: PROCHLORPERAZINE 10 MG/2 ML VIAL 5 MG IV (07:42)
[2024-04-02 07:55] LABS: Lactate/Lactic Acid 1.7 mmol/L (0.4-2.0)
[2024-04-02] MEDS: NICARDIPINE IN NACL, ISO-OSM 40 MG/200 ML PIGGYBACK 25 MG IV (08:23)
[2024-04-02 09:07] LABS: Troponin I High Sensitivity 176.3 pg/mL (4.0-51.3)
[2024-04-02] MEDS: HEPARIN SODIUM (PORCINE) 5,000 UNIT/ML VIAL 4000 UNIT IV ×2 (09:47→23:48)
[2024-04-02] MEDS: HEPARIN SODIUM,PORCINE/D5W 25,000 UNIT/500 ML IV.SOLN 19 UNIT IV (09:47)
[2024-04-02 10:04] LABS: INR 1.11; Prothrombin Time 11.6 sec (9.0-11.6)
[2024-04-02 10:07] LABS: Partial Thromboplastin Time 23.6 sec (22.3-36.2)
--- NOTE | 2024-04-02 11:00 | P.HP_ITS ---
HPI H&P: HPI History of Present Illness Chief complaint: INTRACTABLE VOMITING/ELEVATED TROP Narrative: Patient presented to the emergency room with increasing, nausea, vomiting. Unable to control at home. Unable to take her medications at home. Patient was hypotensive in the field and given IV fluids. In the emergency room became significantly hypertensive, significant tachycardia and respiratory distress, completing the workup found to have significantly elevated high-sensitivity troponin, positive lactate, leukocytosis. Case was discussed about possible transfer, no beds available. Reconsultation with interstate bus dispatcher recommended placing on heparin drip, controlling blood pressure. Patient will be admitted for severe sepsis. When I saw patient in the emergency room, patient seemed very fatigued but resting in bed and answering questions appropriately. Denies any real specific complaint, denies cough, denies abdominal pain. No fever or chills just the nausea and vomiting that she presented with. Opioid HPI Opioid Management Most Recent Pain and Opioid Data: No Data to Display Review of Systems ROS Status of ROS 10 or more systems reviewed and unremark able except as noted in history and below Meds Home Medications and Allergies Home Medications ?Medication ?Instructions ?Recorded ?Confirmed ?Type amitriptyline 10 mg tablet 10 mg PO .qhs 04/01/24 04/02/24 History amlodipine 10 mg tablet 10 mg PO .qd 04/01/24 04/02/24 History aspirin 81 mg tablet,delayed 81 mg PO .qd 04/01/24 04/02/24 History release atorvastatin 10 mg tablet 10 mg PO .qd 04/01/24 04/02/24 History carvedilol 12.5 mg tablet 12.5 mg PO Q12H 04/01/24 04/02/24 History cyclobenzaprine 10 mg tablet 10 mg PO BID PRN muscle spasm 04/01/24 04/02/24 History docusate sodium 100 mg capsule 100 mg PO .qd 04/01/24 04/02/24 History duloxetine 60 mg capsule,delayed 60 mg PO .amhs 04/01/24 04/02/24 History release gabapentin 600 mg tablet 600 mg PO .q6 04/01/24 04/02/24 History insulin glargine 100 unit/mL (3 35 unit subcut BID 04/01/24 04/02/24 History mL) subcutaneous pen (Lantus Solostar U-100 Insulin) insulin lispro 100 unit/mL 10 unit subcut TIDWM 04/01/24 04/02/24 History subcutaneous pen lisinopril 20 mg tablet 20 mg PO .qd 04/01/24 04/02/24 History loratadine 10 mg tablet 10 mg PO .qd 04/01/24 04/02/24 History metoclopramide HCl 10 mg tablet 10 mg PO .qd 04/01/24 04/02/24 History metoprolol succinate 25 mg 25 mg PO .qd 04/01/24 04/02/24 History tablet,extended release 24 hr omeprazole 20 mg capsule,delayed 20 mg PO .qd 04/01/24 04/02/24 History release quetiapine 50 mg tablet 100 mg PO .qhs 04/01/24 04/02/24 History tizanidine 4 mg tablet 4 mg PO .qhs PRN muscle spasticity 04/01/24 04/02/24 History Allergies Allergy/AdvReac Type Severity Reaction Status Date / Time mustard Allergy Severe Anaphylaxis Verified 04/01/24 16:45 brown coating on advil Allergy Swelling Uncoded 04/01/24 16:45 of Lip/Tongue/Throat Exam Constitutional Vital Signs, click to edit/add: Last Vital Signs Temp 98.9 F 04/01/24 21:56 Pulse 86 04/02/24 10:45 Resp 18 04/02/24 10:45 BP 105/70 04/02/24 10:45 Pulse Ox 94 L 04/02/24 10:45 O2 Del Method Room Air 04/01/24 21:56 Documenting provider has reviewed patient's vital signs: yes Common normals: no apparent distress (Just appears very fatigued) HENMT Common normals: normocephalic; oral mucous membranes not moist (Dry mucous membranes) Respiratory Common normals: normal respiratory effort, no retractions and no use of accessory muscles Cardio Common normals: regular rhythm Rate: tachycardic GI Common normals: Normal to inspection, nondistended, normoactive bowel sounds present, soft to palpation, non-tender and no hepatosplenomegaly Extremity Common normals: normal to inspection, full ROM and normal capillary refill Results Labs Labs: Short CBC 04/01/24 Range/Units 20:15 WBC 21.9 H (4.0-11.0) 10^3/uL Hgb 11.8 L (12.0-16.0) g/dL Hct 36.1 (36.0-48.0) % Plt Count 473 H (150-450) 10^3/uL BMP 04/01/24 17:30 Sodium 136 Potassium 3.4 L Chloride 96 L Carbon Dioxide 26.2 BUN 19.0 H Creatinine 1.10 H Glucose 334 H Calcium 8.7 Liver Function 04/01/24 Range/Units 17:30 Total Bilirubin 0.6 (0.2-1.0) mg/dL AST 14 L (15-37) U/L ALT 30 (14-59) U/L Alkaline Phosphatase 130 H (46-116) U/L Albumin 3.2 L (3.4-5.0) g/dL Urine 04/01/24 Range/Units 18:00 Urine Color Yellow (YELLOW) Urine Clarity Clear (CLEAR) Urine pH 6.0 (5.0-9.0) Ur Specific [place] 1.020 (1.005-1.025) Urine Protein 100 A (NEG/TRACE) mg/dL Urine Glucose (UA) >=1000 A (NEGATIVE) mg/dL ABG ABG results: 04/01/24 17:30 VBG pH 7.594 H VBG pCO2 24.3 L Assessment and Plan Assessment and Plan (1) SIRS (systemic inflammatory response syndrome): (2) Acute dehydration: (3) Elevated troponin: (4) Syncope: (5) Nausea & vomiting: Plan Admission findings: Sinus tachycardia, respiratory distress, currently uncontrolled hypertension, leukocytosis, lactic acidosis, hyperglycemia, acute kidney injury, hypokalemia, thrombocythemia, elevated high-sensitivity troponin likely secondary to severe sepsis due to acute UTI. Start patient on IV antibiotics. Already received fluid resuscitation in ER will maintain fluids. Dehydration and severe sepsis secondary to acute UTI-white blood cell count higher this morning after initial evaluation in the ER. Antibiotics instituted. Blood cultures pending. Elevated high-sensitivity troponin with a normal EKG, possible acute coronary syndrome, will check stress test and echocardiogram when available, less likely 2 days., Suspect elevated high-sensitivity troponin due to demand ischemia from sepsis as outlined above-start patient on heparin drip, beta-blockers, nitrates. Thrombocythemia-continue to monitor, elevated from initial admission Hypokalemia-supplement Acute kidney injury-improved after initial fluid resuscitation Hyperglycemia-insulin sliding scale Elevated BNP-this is likely secondary again to demand ischemia. Continue with fluid resuscitation as that is needed for the sepsis. Repeat BNP in a.m. Significant monocytosis on initial blood work-check mono screen Admission status: Patient with severe sepsis as outlined above, positive troponin secondary to demand ischemia and possible acute coronary syndrome- medically necessary treatment will span 2 midnights. Inpatient status.
[2024-04-02 11:41] LABS: Basophils Absolute Auto 0.1 10^3/uL (0.0-0.1); Basophils Percent Auto 0.3 % (0.2-2.0); Eosinophils Absolute Auto 0.1 10^3/uL (0.0-0.7); Eosinophils Percent Auto 0.2 % (0.9-7.0); Hematocrit 36.7 % (36.0-48.0); Hemoglobin 11.8 g/dL (12.0-16.0); Immature Granulocytes Abs Auto 0.13 10^3/uL (0.00-0.03); Immature Granulocytes Pct Auto 0.6 % (0.0-0.5); Lymphocytes Percent Auto 12.5 % (20.5-60.0); Mean Corpuscular HGB Conc 32.2 g/dL (29.9-35.2); Mean Corpuscular Hemoglobin 28.1 pg (26.7-34.0); Mean Corpuscular Volume 87.4 fL (81.0-99.0); Mean Platelet Volume 10.3 fL (9.5-13.5); Monocytes Absolute Auto 0.9 10^3/uL (0.3-0.8); Neutrophils Absolute Auto 19.4 10^3/uL (1.4-6.5); Neutrophils Percent Auto 82.4 % (43.0-75.0); Platelet Count 477 10^3/uL (150-450); Red Cell Distribution Width 17.2 % (11.0-15.0); White Blood Count 23.5 10^3/uL (4.0-11.0)
[2024-04-02 11:49] LABS: Alanine Aminotransferase 47 U/L (14-59); Albumin Globulin Ratio 0.7; Albumin Level 2.8 g/dL (3.4-5.0); Alkaline Phosphatase 112 U/L (46-116); Anion Gap 14.5; Aspartate Amino Transferase 58 U/L (15-37); BUN Creatinine Ratio 14.7; Bilirubin Total 0.5 mg/dL (0.2-1.0); Calcium 7.8 mg/dL (8.5-10.1); Carbon Dioxide 22.9 mmol/L (21.0-32.0); Chloride 101 mmol/L (98-107); Estimated GFR (African America >60 (>=60); Estimated GFR (Non-African Ame >60 (>=60); Globulin 3.8 g/dL; Glucose 273 mg/dL (74-106); Potassium 3.4 mmol/L (3.5-5.1); Sodium 135 mmol/L (136-145); Total Protein 6.6 g/dL (6.4-8.2)
[2024-04-02 12:36] LABS: Magnesium 1.4 mg/dL (1.8-2.4)
[2024-04-02 12:43] LABS: Glucometer 219 mg/dL (74-106)
[2024-04-02 12:50] LABS: Troponin I High Sensitivity 133.2 pg/mL (4.0-51.3)
[2024-04-02 12:52] LABS: Internal Control Within Normal Limits; Mono Screen NEGATIVE (NEGATIVE)
[2024-04-02 15:19] LABS: Troponin I High Sensitivity 122.7 pg/mL (4.0-51.3)
[2024-04-02 15:43] LABS: ABG PCO2 32.6 mmHg (35.0-45.0); Allen Test POS (POSITIVE); Base Excess ABG 1.8 mmol/L (-2.0-2.0); HCO3 ABG 25.1 mmol/L (22.0-26.0); O2 Mode ROOM AIR; Oxygen Saturation ABG 94.7 %; PO2 ABG 66.7 mmHg (80.0-100.0); Puncture Site L RADIAL; pH ABG 7.494 (7.350-7.450)
[2024-04-02 16:11] LABS: Glucometer 171 mg/dL (74-106)
[2024-04-02 16:24] LABS: PTT Heparin Monitor 34.8 sec (48.2-68.6)
--- NOTE | 2024-04-02 17:09 | PC.NURSE ---
dynamic access in with patient to place triple lumen picc line
[2024-04-02] MEDS: PIPERACILLIN SODIUM/TAZOBACTAM 3.375 GM in 0.9 % SODIUM CHLORIDE 50 ML IV (17:39)
[2024-04-02] MEDS: LACTATED RINGER'S SOLUTION 1,000 ML 100 ML IV (17:39)
[2024-04-02] MEDS: LEVOFLOXACIN IN DEXTROSE 5 % 750 MG/150 ML IV.SOLN 100 MG IV (17:39)
[2024-04-02] MEDS: PANTOPRAZOLE SODIUM 40 MG VIAL IV (17:39)
[2024-04-02] MEDS: ONDANSETRON PF 4 MG/2 ML VIAL IV (19:36)
[2024-04-02] MEDS: POTASSIUM CHLORIDE 10 MEQ ER TABLET 20 MEQ PO (21:05)
[2024-04-02] MEDS: METOPROLOL TARTRATE 25 MG TABLET PO (21:05)
[2024-04-02] MEDS: DULOXETINE HCL 60 MG CAPSULE.DR PO (21:05)
[2024-04-02] MEDS: AMITRIPTYLINE HCL 10 MG TABLET PO (21:05)
[2024-04-02] MEDS: QUETIAPINE FUMARATE 100 MG TABLET PO (21:06)
[2024-04-02] MEDS: GABAPENTIN 300 MG CAPSULE 600 MG PO (21:06)
[2024-04-02 21:08] LABS: Glucometer 150 mg/dL (74-106)
[2024-04-02 22:39] LABS: PTT Heparin Monitor 31.9 sec (48.2-68.6)
[2024-04-02] MEDS: ACETAMINOPHEN 500 MG TABLET 1000 MG PO (23:48)
[2024-04-03] VITALS (22 sets, daily range): BP systolic 88–147; BP diastolic 55–88; PULSE 60–109; TEMP 36.5–37.1; O2SAT 92–95
[2024-04-03] MEDS: PIPERACILLIN SODIUM/TAZOBACTAM 3.375 GM in 0.9 % SODIUM CHLORIDE 50 ML IV ×3 (04:00→21:26)
[2024-04-03] MEDS: LACTATED RINGER'S SOLUTION 1,000 ML 100 ML IV ×2 (04:00→16:20)
[2024-04-03] MEDS: GABAPENTIN 300 MG CAPSULE 600 MG PO ×4 (04:00→21:39)
[2024-04-03 04:37] LABS: Basophils Absolute Auto 0.1 10^3/uL (0.0-0.1); Basophils Percent Auto 0.5 % (0.2-2.0); Eosinophils Absolute Auto 0.2 10^3/uL (0.0-0.7); Eosinophils Percent Auto 1.5 % (0.9-7.0); Hematocrit 30.6 % (36.0-48.0); Hemoglobin 9.7 g/dL (12.0-16.0); Immature Granulocytes Abs Auto 0.04 10^3/uL (0.00-0.03); Immature Granulocytes Pct Auto 0.3 % (0.0-0.5); Lymphocytes Absolute Auto 4.9 10^3/uL (1.2-3.8); Mean Corpuscular HGB Conc 31.7 g/dL (29.9-35.2); Mean Corpuscular Volume 88.4 fL (81.0-99.0); Mean Platelet Volume 9.7 fL (9.5-13.5); Monocytes Absolute Auto 0.7 10^3/uL (0.3-0.8); Monocytes Percent Auto 4.8 % (1.7-12.0); Neutrophils Absolute Auto 7.8 10^3/uL (1.4-6.5); Neutrophils Percent Auto 56.9 % (43.0-75.0); Platelet Count 303 10^3/uL (150-450); Red Blood Count 3.46 10^6/uL (4.20-5.40); Red Cell Distribution Width 17.2 % (11.0-15.0); White Blood Count 13.6 10^3/uL (4.0-11.0)
[2024-04-03 04:48] LABS: PCO2 VBG 43.6 mmHg (40.0-52.0); pH VBG 7.391 (7.330-7.430)
[2024-04-03 05:18] LABS: PTT Heparin Monitor 42.7 sec (48.2-68.6)
[2024-04-03 05:34] LABS: Alanine Aminotransferase 57 U/L (14-59); Albumin Globulin Ratio 0.7; Albumin Level 2.4 g/dL (3.4-5.0); Alkaline Phosphatase 88 U/L (46-116); Anion Gap 14.5; Aspartate Amino Transferase 78 U/L (15-37); BUN Creatinine Ratio 13.2; Bilirubin Total 0.4 mg/dL (0.2-1.0); Calcium 7.7 mg/dL (8.5-10.1); Carbon Dioxide 25.4 mmol/L (21.0-32.0); Chloride 102 mmol/L (98-107); Estimated GFR (African America >60 (>=60); Estimated GFR (Non-African Ame >60 (>=60); Globulin 3.3 g/dL; Glucose 150 mg/dL (74-106); Magnesium 1.5 mg/dL (1.8-2.4); Sodium 139 mmol/L (136-145); Total Protein 5.7 g/dL (6.4-8.2)
[2024-04-03 05:37] LABS: Potassium 2.9 mmol/L (3.5-5.1)
[2024-04-03 05:38] LABS: Troponin I High Sensitivity 81.2 pg/mL (4.0-51.3)
--- NOTE | 2024-04-03 06:00 | ECG_ITS ---
[facility] Test Date: 2024-04-03 Pat Name: RAMON VALDES Department: Room: [facility] Gender: Female Quality Reviewer: : 1970 Requested By: ELYSSA BECK Order Number: [id number] Reading MD: ELYSSA BECK Measurements Intervals [place] Rate: 62 P: 16 MA: 130 QRS: 12 QRSD: 97 T: 10 QT: 492 QTc: 501 Interpretive Statements SINUS RHYTHM PROLONGED QT INTERVAL Non-Specific T wave inversion in III Compared to ECG 04/01/2024 16:52:25 Prolonged QT interval now present Sinus tachycardia no longer present Short MA interval no longer present Electronically Signed On 04-03-2024 6:57:45 EDT by ELYSSA BECK
[2024-04-03 07:42] LABS: Glucometer 160 mg/dL (74-106)
[2024-04-03] MEDS: POTASSIUM CHLORIDE 40 MEQ in 0.9 % SODIUM CHLORIDE 250 ML 67.5 MEQ IV (07:44)
[2024-04-03] MEDS: INSULIN ASPART 300 UNIT/3 ML PEN SUBQ ×3 (07:51→16:22)
[2024-04-03] MEDS: HEPARIN SODIUM,PORCINE/D5W 25,000 UNIT/500 ML IV.SOLN 26.236 UNIT IV (09:08)
[2024-04-03] MEDS: NITROGLYCERIN 2% 1 GRAM PACKET 1 GM TD ×2 (09:16→13:21)
[2024-04-03] MEDS: POTASSIUM CHLORIDE 10 MEQ ER TABLET 40 MEQ PO ×2 (09:19→21:27)
[2024-04-03] MEDS: ATORVASTATIN CALCIUM 10 MG TABLET PO (09:19)
[2024-04-03] MEDS: MAGNESIUM OXIDE 400 MG TABLET PO ×2 (09:19→21:27)
[2024-04-03] MEDS: METOCLOPRAMIDE HCL 10 MG TABLET PO (09:19)
[2024-04-03] MEDS: CETIRIZINE HCL 10 MG TABLET PO (09:19)
[2024-04-03] MEDS: LISINOPRIL 20 MG TABLET PO (09:20)
[2024-04-03] MEDS: DULOXETINE HCL 60 MG CAPSULE.DR PO ×2 (09:20→21:28)
[2024-04-03] MEDS: DOCUSATE SODIUM 100 MG CAPSULE PO (09:20)
[2024-04-03] MEDS: PANTOPRAZOLE SODIUM 40 MG VIAL IV (09:28)
--- NOTE | 2024-04-03 09:28 | P.PN_ITS ---
Progress Note: Subjective Subjective Interval history: Patient slept well last night, was sleeping when I walked into the room, awakened easily, no complaints, denies chest pressure or chest pain. Denies shortness of breath but has not been ambulating. No abdominal complaints. Exam Constitutional Vital Signs, click to edit/add: Last Vital Signs Temp 97.8 F 04/03/24 04:19 Pulse 62 04/03/24 08:34 Resp 16 04/03/24 04:19 BP 88/55 L 04/03/24 04:19 Pulse Ox 94 L 04/03/24 05:35 O2 Del Method Room Air 04/03/24 05:35 Documenting provider has reviewed patient's vital signs: yes Common normals: no apparent distress HENMT Common normals: normocephalic; oral mucous membranes not moist (Dry mucous membranes) Chest Common normals: inspection of chest normal and palpation of chest normal Respiratory Common normals: normal respiratory effort, no retractions and no use of accessory muscles Cardio Common normals: regular rhythm Rate: not tachycardic GI Common normals: Normal to inspection, nondistended, normoactive bowel sounds present, soft to palpation, non-tender and no hepatosplenomegaly Extremity Common normals: normal to inspection, full ROM and normal capillary refill Progress Note: Objective Labs Labs: Short CBC 04/02/24 04/03/24 Range/Units 08:31 04:10 WBC 23.5 H 13.6 H (4.0-11.0) 10^3/uL Hgb 11.8 L 9.7 L (12.0-16.0) g/dL Hct 36.7 30.6 L (36.0-48.0) % Plt Count 477 H 303 (150-450) 10^3/uL BMP 04/02/24 04/03/24 09:43 04:10 Sodium 135 L 139 Potassium 3.4 L 2.9 L* Chloride 101 102 Carbon Dioxide 22.9 25.4 BUN 11.0 10.0 Creatinine 0.75 0.76 Glucose 273 H 150 H Calcium 7.8 L 7.7 L Liver Function 04/02/24 04/03/24 Range/Units 09:43 04:10 Total Bilirubin 0.5 0.4 (0.2-1.0) mg/dL AST 58 H 78 H (15-37) U/L ALT 47 57 (14-59) U/L Alkaline Phosphatase 112 88 (46-116) U/L Albumin 2.8 L 2.4 L (3.4-5.0) g/dL Progress Note: A&P Assessment and Plan (1) SIRS (systemic inflammatory response syndrome): (2) Acute dehydration: (3) Elevated troponin: (4) Syncope: (5) Nausea & vomiting: Plan Admission findings: Sinus tachycardia, respiratory distress, currently uncontrolled hypertension, leukocytosis, lactic acidosis, hyperglycemia, acute kidney injury, hypokalemia, thrombocythemia, elevated high-sensitivity troponin likely secondary to severe sepsis due to acute UTI. Start patient on IV antibiotics. Already received fluid resuscitation in ER will maintain fluids. Dehydration and severe sepsis secondary to acute UTI-white blood cell count higher this morning after initial evaluation in the ER. Antibiotics instituted. Blood cultures pending. Elevated high-sensitivity troponin with a normal EKG, possible acute coronary syndrome, will check stress test and echocardiogram when available tomorrow., Suspect elevated high-sensitivity troponin due to demand ischemia from sepsis as outlined above-start patient on heparin drip, beta-blockers, nitrates. ECG today without significant change, telemetry showing occasional PVCs, already on a beta-ibeth. Thrombocythemia-continue to monitor, improving Hypokalemia-supplement Acute kidney injury-improved after initial fluid resuscitation Hyperglycemia-insulin sliding scale Hypokalemia-supplement Hypomagnesemia-supplement Acute anemia-check stool for occult blood loss. Elevated BNP-this is likely secondary again to demand ischemia. Resolved Significant monocytosis on initial blood work-check mono screen Moderate protein calorie malnutrition-diet management Admission status: Patient with severe sepsis as outlined above, positive troponin secondary to demand ischemia and possible acute coronary syndrome- medically necessary treatment will span 2 midnights. Inpatient status.
[2024-04-03 11:12] LABS: Glucometer 238 mg/dL (74-106)
[2024-04-03 11:41] LABS: PTT Heparin Monitor 47.5 sec (48.2-68.6)
[2024-04-03] MEDS: LEVOFLOXACIN IN DEXTROSE 5 % 750 MG/150 ML IV.SOLN 100 MG IV (13:21)
[2024-04-03 16:06] LABS: Glucometer 156 mg/dL (74-106)
[2024-04-03 19:37] LABS: Glucometer 131 mg/dL (74-106)
[2024-04-03] MEDS: AMITRIPTYLINE HCL 10 MG TABLET PO (21:28)
[2024-04-03] MEDS: QUETIAPINE FUMARATE 100 MG TABLET PO (21:28)
[2024-04-03] MEDS: HYOSCYAMINE SULFATE 0.125 MG TAB.SUBL SL (21:28)
[2024-04-04] VITALS (23 sets, daily range): BP systolic 147–240; BP diastolic 52–104; PULSE 65–87; TEMP 36.6–37.7; O2SAT 93–98
--- NOTE | 2024-04-04 | PCN_ITS ---
CARDIAC STRESS TEST Requesting Physician: Procedure Date: 04/04/2024 LEXISCAN EKG STRESS TEST INDICATION FOR THE TEST: Elevated troponin and dyspnea on exertion. Resting EKG showed normal sinus rhythm, heart rate 71 beats per minute, early re-polarization. Lexiscan was injected without any associated symptoms. Patient?s heart rate and blood pressure remained stable throughout the test. Patient did not experience any chest pain. Maximal heart rate 111 beats per minute. Maximal blood pressure 164/88 mm/Hg. There were no EKG changes throughout the test. CONCLUSION: 1. Negative Lexiscan EKG stress test for ischemia. 2. Nuclear images report is pending. Zain Quinones M.D., FACC CELSO/raul JOYCE
[2024-04-04 00:40] LABS: PTT Heparin Monitor 25.9 sec (48.2-68.6)
[2024-04-04] MEDS: HEPARIN SODIUM (PORCINE) 5,000 UNIT/ML VIAL 4000 UNIT IV ×2 (01:32→17:16)
[2024-04-04] MEDS: LACTATED RINGER'S SOLUTION 1,000 ML 100 ML IV ×2 (02:25→15:48)
[2024-04-04] MEDS: PIPERACILLIN SODIUM/TAZOBACTAM 3.375 GM in 0.9 % SODIUM CHLORIDE 50 ML IV ×2 (03:38→17:00)
--- NOTE | 2024-04-04 06:00 | ECG_ITS ---
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
[2024-04-04 06:28] LABS: Basophils Absolute Auto 0.1 10^3/uL (0.0-0.1); Basophils Percent Auto 0.5 % (0.2-2.0); Eosinophils Absolute Auto 0.4 10^3/uL (0.0-0.7); Eosinophils Percent Auto 3.7 % (0.9-7.0); Hemoglobin 8.6 g/dL (12.0-16.0); Immature Granulocytes Abs Auto 0.04 10^3/uL (0.00-0.03); Immature Granulocytes Pct Auto 0.4 % (0.0-0.5); Lymphocytes Absolute Auto 3.5 10^3/uL (1.2-3.8); Lymphocytes Percent Auto 35.1 % (20.5-60.0); Mean Corpuscular HGB Conc 31.9 g/dL (29.9-35.2); Mean Corpuscular Hemoglobin 28.7 pg (26.7-34.0); Mean Platelet Volume 9.8 fL (9.5-13.5); Monocytes Absolute Auto 0.4 10^3/uL (0.3-0.8); Monocytes Percent Auto 4.1 % (1.7-12.0); Neutrophils Absolute Auto 5.7 10^3/uL (1.4-6.5); Neutrophils Percent Auto 56.2 % (43.0-75.0); PCO2 VBG 42.8 mmHg (40.0-52.0); Platelet Count 273 10^3/uL (150-450); Red Cell Distribution Width 17.2 % (11.0-15.0); pH VBG 7.357 (7.330-7.430)
--- NOTE | 2024-04-04 06:31 | CA_ITS ---
Patient Name: RAMON VALDES MR#: [id number] : 1970 Exam Date: 04/04/2024 Ordering Doctor: DR Dl Lam . ECHOCARDIOGRAM REPORT PROCEDURE: CA ECHO DOPPLER COMPLETE INDICATIONS: Dyspnea COMPARISON: None. DESCRIPTION: COMPLETE ECHOCARDIOGRAM Real-time transthoracic echocardiography with 2D, M-mode, spectral and color flow Doppler performed. QUALITY: Technical quality was good. LEFT VENTRICLE: Normal chamber size. Moderate concentric left ventricular hypertrophy. Global left ventricular systolic function is normal. LV EF: Estimated left ventricular ejection fraction is 60-65 %. DIASTOLIC: Normal diastolic function. ATRIAL SEPTUM: LEFT ATRIUM: Mild dilatation. RIGHT ATRIUM: Normal chamber size. RIGHT VENTRICLE: Normal chamber size. Normal right ventricular systolic function. TRICUSPID VALVE: Normal mobility and thickness. No stenosis with trivial regurgitation. No evidence of pulmonary hypertension. RVSP 26 mmHg. MITRAL VALVE: Normal mobility and thickness. No evidence of mitral valve stenosis. There is no mitral annular calcification. Trivial mitral regurgitation. AORTIC VALVE: Normal trileaflet appearance. No visible sclerosis. Normal leaflet mobility. No evidence of aortic valve stenosis. No aortic regurgitation. AORTIC ROOT: Normal diameter and appearance. PULMONIC VALVE: Normal thickness and mobility. No stenosis. Trivial regurgitation. PERICARDIUM: No evidence of pericardial effusion. IVC: Collapses with inspirations. Normal size. PLEURA: CONCLUSION: 1. Moderate concentric left ventricular hypertrophy with normal systolic function. LVEF is 60 to 65%. 2. Normal right ventricular size and systolic function. 3. Mild left atrial dilatation. 4. Normal diastolic function. 5. No significant valvular dysfunction. 6. Normal right-sided pressures. 7. No pericardial effusion. Adult Echocardiography Procedure Report Left Ventricle LVEDD (3.7 - 5.6 cm): 4.26 cm LVESD (2.2 - 4.0 cm): 3.17 cm LVIVS thickness (0.6 - 1.2 cm): 1.35 cm LVPW thickness (0.5 - 1.0 cm): 1.55 cm e': 0.10 m/s E - e': 8.60 LVOT Max Gradient: 3.84 mm[Hg] LVOT Area (cm2): 0.98 m/s Peak Velocity (LVOT): 0.98 m/s Mean Velocity (LVOT): 0.62 m/s LVOT Diameter 2.04 cm Left Ventricular Ejection Fraction: 60-65 % Left Atrium LA Volume Index (2D A2C): 47.72 ml/m2 Left Atrium Systolic Dimension: 3.62 cm Mitral Valve MV E to A Ratio: 1.27, 1.28 Mitral Valve A-Wave Peak Velocity: 0.65 m/s Mitral Valve E-Wave Peak Velocity: 0.82 m/s Right Ventricle RV Internal Diastolic Dimension: 3.11 cm Aorta AO Root Diam: 3.26 cm Ascending Ao Diam: 2.55 cm Aortic Valve AoV Area (Peak [place]): 2.17 cm2, 2.17 cm2 AoV Area (VTI): 2.19 cm2, 2.19 cm2 Peak Velocity(Antegrade Flow): 1.47 m/s Peak Gradient(Antegrade Flow): 8.69 mm[Hg] Mean Velocity(Antegrade Flow): 0.92 m/s Mean Gradient(Antegrade Flow): 4.01 mm[Hg] Velocity Time Integral: 31.07 cm Tricuspid Valve Peak Velocity (Regurgitant Flow): 2.20 m/s, 2.42 m/s Pulmonic Valve Mean Gradient: 2.75 mm[Hg] Mean Velocity: 0.79 m/s Peak Velocity: 1.06 m/s, 0.75 m/s Peak Gradient: 2.27 mm[Hg], 4.51 mm[Hg] Right Atrium Right Atrium Systolic Pressure: 21.92 ml, 21.92 ml Dictated by: Jacobo Harris M.D. on 04/04/2024 at 13:24 Approved by: Jacobo Harris M.D. on 04/04/2024 at 13:30
--- NOTE | 2024-04-04 06:32 | NM_ITS ---
Patient Name: RAMON VALDES MR#: [id number] : 1970 Exam Date: 04/04/2024 Ordering Doctor: DR ELYSSA BECK . RADIOLOGY REPORT PROCEDURE: NM JOSE MARTIN PERF SPECT REST STR COMPARISON: None. INDICATIONS: chest pain, elevated troponin, nausea and vomiting TECHNIQUE: Exam Description: Stress/Rest one day protocol gated SPECT Rest Imagin.6 mCi Tc-99m Cardiolite IV on 04/04/2024 Stress Imaging 32.2 mCi Tc-99m Cardiolite IV on 04/04/2024 Exercise Protocol: 0.4 mg Lexiscan given IV Heart Rate (bpm): Rest: 70 Max: 111 PMHR: 67 Blood Pressure: Rest: 148/86 Max: 164/88 Symptoms: Rest and peak stress ECG findings were pending and the exercise portion of the study was pending per attending physician Dr. DUBOSE . For more details please see separate cardiac stress test report. FINDINGS: QUALITY OF STUDY: Good. PERFUSION DEFECT: LOCATION: Mid-inferior. SIZE: Small (1-2 segments). SEVERITY: Moderate. TYPE: Persistent. WALL MOTION: Normal. LV SIZE: Normal. 117 mL. TID / TCD: None; 1.0 LVEF: Normal. Calculated EF 64%. SUMMARY: Myocardial perfusion imaging study has ABNORMAL findings. CONCLUSION: 1. Small fixed defect in the inferior wall, RCA distribution 2. No reversible ischemia 3. Pending exercise test results Dictated by: Jonatan Anthony MD on 04/04/2024 at 16:10 Approved by: Jonatan Anthony MD on 04/04/2024 at 16:12
--- NOTE | 2024-04-04 06:45 | P.PN_ITS ---
Progress Note: Subjective Subjective Interval history: Patient without complaint, denies chest pain or shortness of breath. Exam Constitutional Vital Signs, click to edit/add: Last Vital Signs Temp 98.6 F 04/03/24 23:57 Pulse 67 04/04/24 06:00 Resp 18 04/03/24 23:57 BP 110/71 04/03/24 23:57 Pulse Ox 92 L 04/03/24 23:57 O2 Del Method Room Air 04/03/24 23:57 Documenting provider has reviewed patient's vital signs: yes Common normals: no apparent distress HENSC Common normals: normocephalic; oral mucous membranes not moist (Dry mucous membranes) Chest Common normals: inspection of chest normal and palpation of chest normal Respiratory Common normals: normal respiratory effort, no retractions and no use of accessory muscles Cardio Common normals: regular rhythm Rate: not tachycardic GI Common normals: Normal to inspection, nondistended, normoactive bowel sounds present, soft to palpation, non-tender and no hepatosplenomegaly Extremity Common normals: normal to inspection, full ROM and normal capillary refill Progress Note: Objective Labs Labs: Short CBC 04/04/24 Range/Units 06:20 WBC 10.0 (4.0-11.0) 10^3/uL Hgb 8.6 L (12.0-16.0) g/dL Hct 27.0 L (36.0-48.0) % Plt Count 273 (150-450) 10^3/uL Progress Note: A&P Assessment and Plan (1) SIRS (systemic inflammatory response syndrome): (2) Acute dehydration: (3) Elevated troponin: (4) Syncope: (5) Nausea & vomiting: Plan Admission findings: Sinus tachycardia, respiratory distress, currently uncontrolled hypertension, leukocytosis, lactic acidosis, hyperglycemia, acute kidney injury, hypokalemia, thrombocythemia, elevated high-sensitivity troponin likely secondary to severe sepsis due to acute UTI. Start patient on IV antibiotics. Already received fluid resuscitation in ER will maintain fluids. Dehydration and severe sepsis secondary to acute UTI-white blood cell count is improving, is back to baseline normal, culture still pending. Will check on later today. Elevated high-sensitivity troponin with a normal EKG, possible acute coronary syndrome, will check stress test and echocardiogram when available tomorrow., Suspect elevated high-sensitivity troponin due to demand ischemia from sepsis as outlined above-start patient on heparin drip, beta-blockers, nitrates. ECG today without significant change, telemetry showing occasional PVCs, already on a beta-ibeth. Stress test and echocardiogram and cardiac consultation to be completed today Thrombocythemia-continue to monitor, improving Hypokalemia-supplement improved to baseline today Acute kidney injury-improved after initial fluid resuscitation Hyperglycemia-insulin sliding scale Hypokalemia-supplement Hypomagnesemia-supplement and improving Acute anemia-check stool for occult blood loss. Hemoccult pending Elevated BNP-this is likely secondary again to demand ischemia. Resolved Significant monocytosis on initial blood work-stable Moderate protein calorie malnutrition-diet management Admission status: Patient with severe sepsis as outlined above, positive troponin secondary to demand ischemia and possible acute coronary syndrome- medically necessary treatment will span 2 midnights. Inpatient status.
[2024-04-04 06:56] LABS: Alanine Aminotransferase 47 U/L (14-59); Albumin Globulin Ratio 0.8; Albumin Level 2.2 g/dL (3.4-5.0); Alkaline Phosphatase 76 U/L (46-116); Anion Gap 13.4; Aspartate Amino Transferase 35 U/L (15-37); BUN Creatinine Ratio 9.5; Bilirubin Total 0.3 mg/dL (0.2-1.0); Calcium 7.9 mg/dL (8.5-10.1); Carbon Dioxide 25.5 mmol/L (21.0-32.0); Chloride 105 mmol/L (98-107); Estimated GFR (African America >60 (>=60); Estimated GFR (Non-African Ame >60 (>=60); Globulin 2.9 g/dL; Glucose 251 mg/dL (74-106); Magnesium 1.7 mg/dL (1.8-2.4); Potassium 3.9 mmol/L (3.5-5.1); Sodium 140 mmol/L (136-145); Total Protein 5.1 g/dL (6.4-8.2)
[2024-04-04 07:01] LABS: Troponin I High Sensitivity 63.5 pg/mL (4.0-51.3)
[2024-04-04 07:59] LABS: Glucometer 158 mg/dL (74-106)
--- NOTE | 2024-04-04 09:13 | CM.NOTE ---
Rounds made with Dr. Lam. Continue with current treatment plan.
[2024-04-04 10:56] LABS: PTT Heparin Monitor 73.8 sec (48.2-68.6)
--- NOTE | 2024-04-04 11:20 | PC.NURSE ---
Spoke to priscilla in pharmacy in regards to not being able to titrate the heparin on the NOV. She is adding a new order since it's showing infused from previous shift. Patient has 210ml in bag at this time and will be running at 29mls/hr. Her Critical lab was 73.8
--- NOTE | 2024-04-04 11:26 | PC.NURSE ---
Spoke with Red in Nuclear Medicine. Patient may have small amounts of water. Due to patient being physically able to walk a treadmill, no medications are to be administered prior to the test.
--- NOTE | 2024-04-04 13:10 | P.CACN_ITS ---
History of Present Illness History of Present Illness Consult date: 04/04/24 Requesting physician: Dl Lam Chief complaint: INTRACTABLE VOMITING/ELEVATED TROP Narrative: The patient is a 54-year-old female without prior cardiac history. She has a history of hypertension, hyperlipidemia, type 2 insulin-dependent diabetes mellitus for about 10 years, sleep apnea could not tolerate CPAP, GERD and depression. She is a former smoker about 2 packs/day for about 10 years however she quit in 1988. No history of alcohol or illicit drugs She presented to the hospital with 2 days history of nausea vomiting and diarrhea. She was not able to keep any food or medications down. She did not have any chest pain. Troponin was checked and came back to be positive. It has been almost steady and now it is going down. The patient denies any prior history of chest pain at rest or with exertion. She admits to exertional dyspnea which is not new for her. She denies orthopnea or paroxysmal nocturnal dyspnea. She admits occasional but infrequent and brief palpitations without any other symptoms. Admits occasional feet and ankles edema towards the end of the day. She reports rare syncopal episodes when she is very sick. When she came to the emergency room blood pressure was on the low side and she responded to IV fluid. Initial EKG was normal. She was started on heparin IV. Review of Systems ROS Narrative All systems were reviewed and they were negative except for the positive findings were noted above in the history Status of ROS 10 or more systems reviewed and unremark able except as noted in history and below PFSH PFS Medical History Tobacco abuse ?Z72.0 - Tobacco use (ICD-10) Family History Other Family history of diabetes mellitus Heart disease Social History Highest level of school completed/degree received: high school graduate Meds Home Medications and Allergies Home Medications ?Medication ?Instructions ?Recorded ?Confirmed ?Type amitriptyline 10 mg tablet 10 mg PO .qhs 04/01/24 04/02/24 History amlodipine 10 mg tablet 10 mg PO .qd 04/01/24 04/02/24 History aspirin 81 mg tablet,delayed 81 mg PO .qd 04/01/24 04/02/24 History release atorvastatin 10 mg tablet 10 mg PO .qd 04/01/24 04/02/24 History carvedilol 12.5 mg tablet 12.5 mg PO Q12H 04/01/24 04/02/24 History cyclobenzaprine 10 mg tablet 10 mg PO BID PRN muscle spasm 04/01/24 04/02/24 History docusate sodium 100 mg capsule 100 mg PO .qd 04/01/24 04/02/24 History duloxetine 60 mg capsule,delayed 60 mg PO .amhs 04/01/24 04/02/24 History release gabapentin 600 mg tablet 600 mg PO .q6 04/01/24 04/02/24 History insulin glargine 100 unit/mL (3 35 unit subcut BID 04/01/24 04/02/24 History mL) subcutaneous pen (Lantus Solostar U-100 Insulin) insulin lispro 100 unit/mL 10 unit subcut TIDWM 04/01/24 04/02/24 History subcutaneous pen lisinopril 20 mg tablet 20 mg PO .qd 04/01/24 04/02/24 History loratadine 10 mg tablet 10 mg PO .qd 04/01/24 04/02/24 History metoclopramide HCl 10 mg tablet 10 mg PO .qd 04/01/24 04/02/24 History metoprolol succinate 25 mg 25 mg PO .qd 04/01/24 04/02/24 History tablet,extended release 24 hr omeprazole 20 mg capsule,delayed 20 mg PO .qd 04/01/24 04/02/24 History release quetiapine 50 mg tablet 100 mg PO .qhs 04/01/24 04/02/24 History tizanidine 4 mg tablet 4 mg PO .qhs PRN muscle spasticity 04/01/24 04/02/24 History Allergies Allergy/AdvReac Type Severity Reaction Status Date / Time mustard Allergy Severe Anaphylaxis Verified 04/01/24 16:45 brown coating on advil Allergy Swelling Uncoded 04/01/24 16:45 of Lip/Tongue/Throat Exam Constitutional Vital Signs, click to edit/add: Last Vital Signs Temp 98.2 F 04/04/24 08:00 Pulse 87 04/04/24 11:57 Resp 20 04/04/24 11:50 BP 147/52 H 04/04/24 08:00 Pulse Ox 94 L 04/04/24 11:50 O2 Del Method Room Air 04/04/24 11:50 Documenting provider has reviewed patient's vital signs: yes Common normals: no apparent distress, oriented x3, healthy appearing and well nourished General appearance: cooperative and comfortable Orientation/consciousness: Yes awake, Yes oriented to person, Yes oriented to place and Yes oriented to time HENMT Common normals: normocephalic Eye Common normals: PERRL, conjunctivae normal and no scleral icterus Neck & C-Spine Common normals: full ROM, no lymphadenopathy, thyroid normal and no carotid bruits Respiratory Common normals: normal respiratory effort and clear to auscultation bilaterally Auscultation: rales Cardio Common normals: no JVD, regular rate, regular rhythm, S1 normal heart sound, S2 normal heart sound, no gallops, no clicks, no murmurs and no rub Jugular venous distention: no JVD and no other Extremity Common normals: full ROM Neuro Common normals: oriented x3, moves all extremities, no focal motor deficits and no sensory deficits noted Sensorium/orientation: awake and alert Results Labs and Meds Lab results: Cardiac Enzymes 04/04/24 Range/Units 06:20 AST 35 (15-37) U/L CBC 04/04/24 Range/Units 06:20 WBC 10.0 (4.0-11.0) 10^3/uL RBC 3.00 L (4.20-5.40) 10^6/uL Hgb 8.6 L (12.0-16.0) g/dL Hct 27.0 L (36.0-48.0) % Plt Count 273 (150-450) 10^3/uL Neut # (Auto) 5.7 (1.4-6.5) 10^3/uL Lymph # (Auto) 3.5 (1.2-3.8) 10^3/uL Dale # (Auto) 0.4 (0.3-0.8) 10^3/uL Eos # (Auto) 0.4 (0.0-0.7) 10^3/uL Baso # (Auto) 0.1 (0.0-0.1) 10^3/uL Comprehensive Metabolic Panel 04/04/24 Range/Units 06:20 Sodium 140 (136-145) mmol/L Potassium 3.9 (3.5-5.1) mmol/L Chloride 105 (98-107) mmol/L Carbon Dioxide 25.5 (21.0-32.0) mmol/L BUN 7.0 (7.0-18.0) mg/dL Creatinine 0.74 (0.55-1.02) mg/dL Glucose 251 H (74-106) mg/dL Calcium 7.9 L (8.5-10.1) mg/dL AST 35 (15-37) U/L ALT 47 (14-59) U/L Alkaline Phosphatase 76 (46-116) U/L Total Protein 5.1 L (6.4-8.2) g/dL Albumin 2.2 L (3.4-5.0) g/dL Intake and Output 04/03/24 04/04/24 04/04/24 23:59 07:59 15:59 Intake Total 270.2 / 3370.000 1510.275 / 3370.000 Output Total 3101 / 3651 Balance 270.2 / -281.000 -1590.725 / -281.000 Intake: Oral 250 / 250 IV 270.2 / 3120.000 1260.275 / 3120.000 Heparin Sodium,Porcine/D5w 25, 270.2 / 500.000 160.275 / 500.000 000 unit In 500 ml @ 31 mls/hr IV TITR LAURIE Rx#:[id number] Lactated Ringer's Solution 1, 1000 / 2000 000 ml @ 100 mls/hr IV .Q10H [facility] Rx#:[id number] Piperacillin Sodium/Tazobactam 100 / 200 3.375 gm In 0.9 % Sodium Chloride 50 ml @ 12.5 mls/hr IV Q8H [facility] Rx#:[id number] Output: Urine 3100 / 3650 Urine/Stool Mix Imaging and Cardiology Echo: report reviewed EKG Interpretation EKG: sinus rhythm and normal ST/T Assessment and Plan Assessment and Plan (1) Hypertension: Assessment and Plan: Continue current medications including beta-blockers, and lisinopril. I will increase metoprolol to 50 mg twice daily (2) Hyperlipidemia associated with type 2 diabetes mellitus: Assessment and Plan: Continue atorvastatin, the goal is to keep LDL cholesterol 70 or below in this patient was diabetes and many risk factors (3) Sleep apnea: Assessment and Plan: Patient could not tolerate CPAP. She was advised regarding the importance of wearing it on regular basis. Also she was advised to try to lose weight (4) Obesity: Assessment and Plan: Patient was advised to follow low calorie low-carb diet and exercise in order to lose weight
[2024-04-04] MEDS: REGADENOSON 0.4 MG/5 ML SYRINGE IV (14:00)
--- NOTE | 2024-04-04 14:27 | PC.NURSE ---
Nursing Note Cardiac Stress Test Reviewed: Medication, allergies and patient history reviewed. Stress Test: [ x] Patient tolerated stress test well. [ ] Patient unable to tolerate walking on treadmill. Switched to Lexiscan stress test. [x ] No chest pain noted per patient [ ] Chest pain that resolved prior to leaving stress lab. [ x] No dyspnea noted. [ ] Dyspnea that resolved prior to leaving stress lab. [ x] Patient left stress lab asymptomatic and hemodynamically stable. [ ] Patient taken to the Emergency Room due to non-resolving symptoms following stress test. [ ] Patient achieved target heart rate. [ ] Patient unable to achieve target heart rate. [ ] Aminophylline administered as reversal agent to Lexiscan (Regadenoson). [ ] Nitro administered. Nursing Comments: Pt tolerated Lexiscan test well. Pt had to go to the bathroom immediately after test was completed and was taken to the bathroom by staff and when she got back she felt lightheaded and nauseas. Pt states this happens often when she doesn't feel good. Pt was cooled down and vitals were checked and were all WNL. After roughly 4-5 minutes pt felt much better and no longer lightheaded or dizzy and was taken back to room by staff.
[2024-04-04] MEDS: HYDRALAZINE HCL 20 MG/ML VIAL 10 MG IVP (14:39)
[2024-04-04] MEDS: NITROGLYCERIN 2% 1 GRAM PACKET 1 GM TD (14:42)
[2024-04-04] MEDS: LISINOPRIL 20 MG TABLET PO (15:06)
[2024-04-04] MEDS: METOPROLOL TARTRATE 25 MG TABLET PO (15:08)
[2024-04-04 15:09] LABS: PTT Heparin Monitor 27.3 sec (48.2-68.6)
[2024-04-04] MEDS: LEVOFLOXACIN IN DEXTROSE 5 % 750 MG/150 ML IV.SOLN 100 MG IV (15:39)
[2024-04-04] MEDS: METOCLOPRAMIDE HCL 10 MG TABLET PO (15:49)
--- NOTE | 2024-04-04 15:55 | P.CACN_ITS ---
History of Present Illness History of Present Illness Chief complaint: INTRACTABLE VOMITING/ELEVATED TROP PFSH PFSH Medical History (Updated 04/04/24 @ 15:47 by Greg Hoyt MD) Tobacco abuse ?Z72.0 - Tobacco use (ICD-10) Family History (Updated 04/04/24 @ 15:46 by Greg Hoyt MD) Other Family history of diabetes mellitus Heart disease Social History Highest level of school completed/degree received: high school graduate Meds Home Medications and Allergies Home Medications ?Medication ?Instructions ?Recorded ?Confirmed ?Type amitriptyline 10 mg tablet 10 mg PO .qhs 04/01/24 04/02/24 History amlodipine 10 mg tablet 10 mg PO .qd 04/01/24 04/02/24 History aspirin 81 mg tablet,delayed 81 mg PO .qd 04/01/24 04/02/24 History release atorvastatin 10 mg tablet 10 mg PO .qd 04/01/24 04/02/24 History carvedilol 12.5 mg tablet 12.5 mg PO Q12H 04/01/24 04/02/24 History cyclobenzaprine 10 mg tablet 10 mg PO BID PRN muscle spasm 04/01/24 04/02/24 History docusate sodium 100 mg capsule 100 mg PO .qd 04/01/24 04/02/24 History duloxetine 60 mg capsule,delayed 60 mg PO .amhs 04/01/24 04/02/24 History release gabapentin 600 mg tablet 600 mg PO .q6 04/01/24 04/02/24 History insulin glargine 100 unit/mL (3 35 unit subcut BID 04/01/24 04/02/24 History mL) subcutaneous pen (Lantus Solostar U-100 Insulin) insulin lispro 100 unit/mL 10 unit subcut TIDWM 04/01/24 04/02/24 History subcutaneous pen lisinopril 20 mg tablet 20 mg PO .qd 04/01/24 04/02/24 History loratadine 10 mg tablet 10 mg PO .qd 04/01/24 04/02/24 History metoclopramide HCl 10 mg tablet 10 mg PO .qd 04/01/24 04/02/24 History metoprolol succinate 25 mg 25 mg PO .qd 04/01/24 04/02/24 History tablet,extended release 24 hr omeprazole 20 mg capsule,delayed 20 mg PO .qd 04/01/24 04/02/24 History release quetiapine 50 mg tablet 100 mg PO .qhs 04/01/24 04/02/24 History tizanidine 4 mg tablet 4 mg PO .qhs PRN muscle spasticity 04/01/24 04/02/24 History Allergies Allergy/AdvReac Type Severity Reaction Status Date / Time mustard Allergy Severe Anaphylaxis Verified 04/01/24 16:45 brown coating on advil Allergy Swelling Uncoded 04/01/24 16:45 of Lip/Tongue/Throat Exam Constitutional Vital Signs, click to edit/add: Last Vital Signs Temp 98.2 F 04/04/24 08:00 Pulse 80 04/04/24 15:49 Resp 20 04/04/24 11:50 BP 240/93 H 04/04/24 15:06 Pulse Ox 94 L 04/04/24 11:50 O2 Del Method Room Air 04/04/24 11:50 Results Labs and Meds Lab results: Cardiac Enzymes 04/04/24 Range/Units 06:20 AST 35 (15-37) U/L CBC 04/04/24 Range/Units 06:20 WBC 10.0 (4.0-11.0) 10^3/uL RBC 3.00 L (4.20-5.40) 10^6/uL Hgb 8.6 L (12.0-16.0) g/dL Hct 27.0 L (36.0-48.0) % Plt Count 273 (150-450) 10^3/uL Neut # (Auto) 5.7 (1.4-6.5) 10^3/uL Lymph # (Auto) 3.5 (1.2-3.8) 10^3/uL [place] # (Auto) 0.4 (0.3-0.8) 10^3/uL Eos # (Auto) 0.4 (0.0-0.7) 10^3/uL Baso # (Auto) 0.1 (0.0-0.1) 10^3/uL Comprehensive Metabolic Panel 04/04/24 Range/Units 06:20 Sodium 140 (136-145) mmol/L Potassium 3.9 (3.5-5.1) mmol/L Chloride 105 (98-107) mmol/L Carbon Dioxide 25.5 (21.0-32.0) mmol/L BUN 7.0 (7.0-18.0) mg/dL Creatinine 0.74 (0.55-1.02) mg/dL Glucose 251 H (74-106) mg/dL Calcium 7.9 L (8.5-10.1) mg/dL AST 35 (15-37) U/L ALT 47 (14-59) U/L Alkaline Phosphatase 76 (46-116) U/L Total Protein 5.1 L (6.4-8.2) g/dL Albumin 2.2 L (3.4-5.0) g/dL Intake and Output 04/03/24 04/04/24 04/04/24 23:59 07:59 15:59 Intake Total 270.2 / 3370.000 1510.275 / 3370.000 Output Total 3101 / 3651 1800 / 1800 Balance 270.2 / -281.000 -1590.725 / -281.000 -1800 / -1800 Intake: Oral 250 / 250 IV 270.2 / 3120.000 1260.275 / 3120.000 Heparin Sodium,Porcine/D5w 25, 270.2 / 500.000 160.275 / 500.000 000 unit In 500 ml @ 31 mls/hr IV TITR [facility]IE Rx#:[id number] Lactated Ringer's Solution 1, 1000 / 2000 000 ml @ 100 mls/hr IV .Q10H LA[facility]IE Rx#:[id number] Piperacillin Sodium/Tazobactam 100 / 200 3.375 gm In 0.9 % Sodium Chloride 50 ml @ 12.5 mls/hr IV Q8H [facility]IE Rx#:[id number] Output: Urine 3100 / 3650 1800 / 1800 Urine/Stool Mix Assessment and Plan Assessment and Plan (1) Elevated troponin: Assessment and Plan: Most likely due to demanding ischemia due to hypotension and acute illness. Echo showed normal left ventricle static function without significant wall motion abnormalities. I agree on having Lexiscan nuclear stress test today. (2) Syncope: Assessment and Plan: Due to orthostatic hypotension due to dehydration. The echo showed normal left ventricular stock function without wall motion abnormalities. No arrhythmia noted during cardiac monitoring (3) Hypertension: Assessment and Plan: Continue current medications including beta-blockers, amlodipine, and lisinopril (4) Hyperlipidemia associated with type 2 diabetes mellitus: Assessment and Plan: Continue atorvastatin, the goal is to keep LDL cholesterol 70 or below in this patient was diabetes and many risk factors (5) Sleep apnea: Assessment and Plan: Patient could not tolerate CPAP. She was advised regarding the importance of wearing it on regular basis. Also she was advised to try to lose weight (6) Obesity: Assessment and Plan: Patient was advised to follow low calorie low-carb diet and exercise in order to lose weight
[2024-04-04] MEDS: ONDANSETRON PF 4 MG/2 ML VIAL IV ×2 (15:56→23:52)
[2024-04-04 16:05] LABS: Glucometer 220 mg/dL (74-106)
--- NOTE | 2024-04-04 16:20 | PM.CACN ---
History of Present Illness History of Present Illness Chief complaint: INTRACTABLE VOMITING/ELEVATED TROP PFSH PFSH Medical History Tobacco abuse ?Z72.0 - Tobacco use (ICD-10) Family History Other Family history of diabetes mellitus Heart disease Social History Highest level of school completed/degree received: high school graduate Meds Home Medications and Allergies Home Medications ?Medication ?Instructions ?Recorded ?Confirmed ?Type amitriptyline 10 mg tablet 10 mg PO .qhs 04/01/24 04/02/24 History amlodipine 10 mg tablet 10 mg PO .qd 04/01/24 04/02/24 History aspirin 81 mg tablet,delayed 81 mg PO .qd 04/01/24 04/02/24 History release atorvastatin 10 mg tablet 10 mg PO .qd 04/01/24 04/02/24 History carvedilol 12.5 mg tablet 12.5 mg PO Q12H 04/01/24 04/02/24 History cyclobenzaprine 10 mg tablet 10 mg PO BID PRN muscle spasm 04/01/24 04/02/24 History docusate sodium 100 mg capsule 100 mg PO .qd 04/01/24 04/02/24 History duloxetine 60 mg capsule,delayed 60 mg PO .amhs 04/01/24 04/02/24 History release gabapentin 600 mg tablet 600 mg PO .q6 04/01/24 04/02/24 History insulin glargine 100 unit/mL (3 35 unit subcut BID 04/01/24 04/02/24 History mL) subcutaneous pen (Lantus Solostar U-100 Insulin) insulin lispro 100 unit/mL 10 unit subcut TIDWM 04/01/24 04/02/24 History subcutaneous pen lisinopril 20 mg tablet 20 mg PO .qd 04/01/24 04/02/24 History loratadine 10 mg tablet 10 mg PO .qd 04/01/24 04/02/24 History metoclopramide HCl 10 mg tablet 10 mg PO .qd 04/01/24 04/02/24 History metoprolol succinate 25 mg 25 mg PO .qd 04/01/24 04/02/24 History tablet,extended release 24 hr omeprazole 20 mg capsule,delayed 20 mg PO .qd 04/01/24 04/02/24 History release quetiapine 50 mg tablet 100 mg PO .qhs 04/01/24 04/02/24 History tizanidine 4 mg tablet 4 mg PO .qhs PRN muscle spasticity 04/01/24 04/02/24 History Allergies Allergy/AdvReac Type Severity Reaction Status Date / Time mustard Allergy Severe Anaphylaxis Verified 04/01/24 16:45 brown coating on advil Allergy Swelling Uncoded 04/01/24 16:45 of Lip/Tongue/Throat Exam Constitutional Vital Signs, click to edit/add: Last Vital Signs Temp 98.2 F 04/04/24 08:00 Pulse 80 04/04/24 15:49 Resp 20 04/04/24 11:50 BP 240/93 H 04/04/24 15:06 Pulse Ox 94 L 04/04/24 11:50 O2 Del Method Room Air 04/04/24 11:50 Results Labs and Meds Lab results: Cardiac Enzymes 04/04/24 Range/Units 06:20 AST 35 (15-37) U/L CBC 04/04/24 Range/Units 06:20 WBC 10.0 (4.0-11.0) 10^3/uL RBC 3.00 L (4.20-5.40) 10^6/uL Hgb 8.6 L (12.0-16.0) g/dL Hct 27.0 L (36.0-48.0) % Plt Count 273 (150-450) 10^3/uL Neut # (Auto) 5.7 (1.4-6.5) 10^3/uL Lymph # (Auto) 3.5 (1.2-3.8) 10^3/uL [place] # (Auto) 0.4 (0.3-0.8) 10^3/uL Eos # (Auto) 0.4 (0.0-0.7) 10^3/uL Baso # (Auto) 0.1 (0.0-0.1) 10^3/uL Comprehensive Metabolic Panel 04/04/24 Range/Units 06:20 Sodium 140 (136-145) mmol/L Potassium 3.9 (3.5-5.1) mmol/L Chloride 105 (98-107) mmol/L Carbon Dioxide 25.5 (21.0-32.0) mmol/L BUN 7.0 (7.0-18.0) mg/dL Creatinine 0.74 (0.55-1.02) mg/dL Glucose 251 H (74-106) mg/dL Calcium 7.9 L (8.5-10.1) mg/dL AST 35 (15-37) U/L ALT 47 (14-59) U/L Alkaline Phosphatase 76 (46-116) U/L Total Protein 5.1 L (6.4-8.2) g/dL Albumin 2.2 L (3.4-5.0) g/dL Intake and Output 04/04/24 04/04/24 04/04/24 07:59 15:59 23:59 Intake Total 1510.275 / 3370.000 1000 / 1000 Output Total 3101 / 3651 1800 / 1800 Balance -1590.725 / -281.000 -800 / -800 Intake: Oral 250 / 250 IV 1260.275 / 3120.000 1000 / 1000 Heparin Sodium,Porcine/D5w 25, 160.275 / 500.000 000 unit In 500 ml @ 31 mls/hr IV TITR [facility] Rx#:[id number] Lactated Ringer's Solution 1, 1000 / 2000 1000 / 1000 000 ml @ 100 mls/hr IV .Q10H [facility] Rx#:[id number] Piperacillin Sodium/Tazobactam 100 / 200 3.375 gm In 0.9 % Sodium Chloride 50 ml @ 12.5 mls/hr IV Q8H [facility] Rx#:[id number] Output: Urine 3100 / 3650 1800 / 1800 Urine/Stool Mix Patient had many EKGs since admission all of them showed sinus rhythm/sinus bradycardia with early repolarization. Echo 04/04/2024 CONCLUSION: 1. Moderate concentric left ventricular hypertrophy with normal systolic function. LVEF is 60 to 65%. 2. Normal right ventricular size and systolic function. 3. Mild left atrial dilatation. 4. Normal diastolic function. 5. No significant valvular dysfunction. 6. Normal right-sided pressures. 7. No pericardial effusion. Assessment and Plan Assessment and Plan (1) Hypertension: Assessment and Plan: Continue current medications including beta-blockers, and lisinopril. I will increase metoprolol to 50 mg twice daily (2) Hyperlipidemia associated with type 2 diabetes mellitus: Assessment and Plan: Continue atorvastatin, the goal is to keep LDL cholesterol 70 or below in this patient was diabetes and many risk factors (3) Sleep apnea: Assessment and Plan: Patient could not tolerate CPAP. She was advised regarding the importance of wearing it on regular basis. Also she was advised to try to lose weight (4) Obesity: Assessment and Plan: Patient was advised to follow low calorie low-carb diet and exercise in order to lose weight
--- NOTE | 2024-04-04 16:23 | PM.CAPN ---
Progress Note: A&P Assessment and Plan (1) Hypertension: (2) Hyperlipidemia associated with type 2 diabetes mellitus: (3) Sleep apnea: (4) Obesity: Exam Constitutional Vital Signs, click to edit/add: Last Vital Signs Temp 98.2 F 04/04/24 08:00 Pulse 80 04/04/24 15:49 Resp 20 04/04/24 11:50 BP 240/93 H 04/04/24 15:06 Pulse Ox 94 L 04/04/24 11:50 O2 Del Method Room Air 04/04/24 11:50
--- NOTE | 2024-04-04 16:29 | PM.CACN ---
History of Present Illness History of Present Illness Consult date: 04/04/24 Requesting physician: Dl Lam Chief complaint: INTRACTABLE VOMITING/ELEVATED TROP Narrative: The patient is 54-year-old female without prior cardiac history. She has history of hypertension, hyperlipidemia, type 2 diabetes mellitus for about 10 years, sleep apnea could not tolerate CPAP, obesity, She presented with 2 days history of nausea vomiting diarrhea. She was hypotensive but she responded well to IV fluids. Troponin was obtained and it came back positive. It has been steady and now it is going down. She had many EKGs all of them where normal without significant T or ST changes. The patient denies any chest pain at the time of presentation. She denies prior history of chest pain at rest or with exertion. She admits to exertional dyspnea which is not new for her. She denies orthopnea or proximal nocturnal dyspnea or leg edema. She admits rare occasions of syncope usually when she is sick. She admits occasional brief palpitations without other symptoms. She used to smoke 2 packs/day for about 10 years however she quit in 1988. She denies alcohol or illicit drugs Her mother had diabetes mellitus and heart disease which she is not sure of its nature. She had an echo and it showed normal left ventricle systolic function without wall motion abnormalities. Review of Systems ROS Status of ROS 10 or more systems reviewed and unremarkable except as noted in history and below [facility] Medical History Tobacco abuse ?Z72.0 - Tobacco use (ICD-10) Family History Other Family history of diabetes mellitus Heart disease Social History Highest level of school completed/degree received: high school graduate Meds Home Medications and Allergies Home Medications ?Medication ?Instructions ?Recorded ?Confirmed ?Type amitriptyline 10 mg tablet 10 mg PO .qhs 04/01/24 04/02/24 History amlodipine 10 mg tablet 10 mg PO .qd 04/01/24 04/02/24 History aspirin 81 mg tablet,delayed 81 mg PO .qd 04/01/24 04/02/24 History release atorvastatin 10 mg tablet 10 mg PO .qd 04/01/24 04/02/24 History carvedilol 12.5 mg tablet 12.5 mg PO Q12H 04/01/24 04/02/24 History cyclobenzaprine 10 mg tablet 10 mg PO BID PRN muscle spasm 04/01/24 04/02/24 History docusate sodium 100 mg capsule 100 mg PO .qd 04/01/24 04/02/24 History duloxetine 60 mg capsule,delayed 60 mg PO .amhs 04/01/24 04/02/24 History release gabapentin 600 mg tablet 600 mg PO .q6 04/01/24 04/02/24 History insulin glargine 100 unit/mL (3 35 unit subcut BID 04/01/24 04/02/24 History mL) subcutaneous pen (Lantus Solostar U-100 Insulin) insulin lispro 100 unit/mL 10 unit subcut TIDWM 04/01/24 04/02/24 History subcutaneous pen lisinopril 20 mg tablet 20 mg PO .qd 04/01/24 04/02/24 History loratadine 10 mg tablet 10 mg PO .qd 04/01/24 04/02/24 History metoclopramide HCl 10 mg tablet 10 mg PO .qd 04/01/24 04/02/24 History metoprolol succinate 25 mg 25 mg PO .qd 04/01/24 04/02/24 History tablet,extended release 24 hr omeprazole 20 mg capsule,delayed 20 mg PO .qd 04/01/24 04/02/24 History release quetiapine 50 mg tablet 100 mg PO .qhs 04/01/24 04/02/24 History tizanidine 4 mg tablet 4 mg PO .qhs PRN muscle spasticity 04/01/24 04/02/24 History Allergies Allergy/AdvReac Type Severity Reaction Status Date / Time mustard Allergy Severe Anaphylaxis Verified 04/01/24 16:45 brown coating on advil Allergy Swelling Uncoded 04/01/24 16:45 of Lip/Tongue/Throat Exam Constitutional Vital Signs, click to edit/add: Last Vital Signs Temp 98.3 F 04/04/24 16:00 Pulse 75 04/04/24 16:00 Resp 18 04/04/24 16:00 BP 198/98 H 04/04/24 16:00 Pulse Ox 97 04/04/24 16:00 O2 Del Method Room Air 04/04/24 16:00 Common normals: no apparent distress, oriented x3, healthy appearing, alert and well nourished [facility] Common normals: normocephalic Eye Common normals: PERRL, conjunctivae normal and no scleral icterus Neck & C-Spine Common normals: full ROM, no lymphadenopathy, no JVD, thyroid normal and no carotid bruits Chest Common normals: inspection of chest normal and palpation of chest normal Respiratory Common normals: normal respiratory effort and clear to auscultation bilaterally Cardio Common normals: no JVD, regular rate, regular rhythm, S1 normal heart sound, S2 normal heart sound, no gallops, no clicks, no murmurs and no rub GI Auscultation: normoactive bowel sounds Palpation: soft and no hepatosplenomegaly Extremity Common normals: full ROM, no clubbing, cyanosis or edema and no pedal edema Neuro Common normals: oriented x3, moves all extremities and gait normal Sensorium/orientation: awake and alert Results Labs and Meds Lab results: Cardiac Enzymes 04/04/24 Range/Units 06:20 AST 35 (15-37) U/L CBC 04/04/24 Range/Units 06:20 WBC 10.0 (4.0-11.0) 10^3/uL RBC 3.00 L (4.20-5.40) 10^6/uL Hgb 8.6 L (12.0-16.0) g/dL Hct 27.0 L (36.0-48.0) % Plt Count 273 (150-450) 10^3/uL Neut # (Auto) 5.7 (1.4-6.5) 10^3/uL Lymph # (Auto) 3.5 (1.2-3.8) 10^3/uL [place] # (Auto) 0.4 (0.3-0.8) 10^3/uL Eos # (Auto) 0.4 (0.0-0.7) 10^3/uL Baso # (Auto) 0.1 (0.0-0.1) 10^3/uL Comprehensive Metabolic Panel 04/04/24 Range/Units 06:20 Sodium 140 (136-145) mmol/L Potassium 3.9 (3.5-5.1) mmol/L Chloride 105 (98-107) mmol/L Carbon Dioxide 25.5 (21.0-32.0) mmol/L BUN 7.0 (7.0-18.0) mg/dL Creatinine 0.74 (0.55-1.02) mg/dL Glucose 251 H (74-106) mg/dL Calcium 7.9 L (8.5-10.1) mg/dL AST 35 (15-37) U/L ALT 47 (14-59) U/L Alkaline Phosphatase 76 (46-116) U/L Total Protein 5.1 L (6.4-8.2) g/dL Albumin 2.2 L (3.4-5.0) g/dL Intake and Output 04/04/24 04/04/24 04/04/24 07:59 15:59 23:59 Intake Total 1510.275 / 3370.000 1000 / 1000 Output Total 3101 / 3651 1800 / 1800 Balance -1590.725 / -281.000 -800 / -800 Intake: Oral 250 / 250 IV 1260.275 / 3120.000 1000 / 1000 Heparin Sodium,Porcine/D5w 25, 160.275 / 500.000 000 unit In 500 ml @ 31 mls/hr IV TITR LAURIE Rx#:[id number] Lactated Ringer's Solution 1, 1000 / 2000 1000 / 1000 000 ml @ 100 mls/hr IV .Q10H LAURIE Rx#:[id number] Piperacillin Sodium/Tazobactam 100 / 200 3.375 gm In 0.9 % Sodium Chloride 50 ml @ 12.5 mls/hr IV Q8H LAURIE Rx#:[id number] Output: Urine 3100 / 3650 1800 / 1800 Urine/Stool Mix Imaging and Cardiology Echo: report reviewed (CONCLUSION: 1. Moderate concentric left ventricular hypertrophy with normal systolic function. LVEF is 60 to 65%. 2. Normal right ventricular size and systolic function. 3. Mild left atrial dilatation. 4. Normal diastolic function. 5. No significant valvular dysfunction. 6. Normal right-side) ECG results: report reviewed (Patient had many EKGs since admission all of them showed sinus rhythm/sinus bradycardia with early repolarization) Assessment and Plan Assessment and Plan (1) Elevated troponin: Assessment and Plan: Most likely due to demand ischemia due to hypotension and acute illness. Her echo showed normal left ventricular stock function without wall motion abnormalities. Agree on obtaining Lexiscan nuclear stress test. (2) Acute dehydration: Assessment and Plan: Managed by PCP (3) Hypertension: Assessment and Plan: Continue current medications including beta-blockers, and lisinopril. I will increase metoprolol to 50 mg twice daily (4) Hyperlipidemia associated with type 2 diabetes mellitus: Assessment and Plan: Continue atorvastatin, the goal is to keep LDL cholesterol 70 or below in this patient was diabetes and many risk factors (5) Sleep apnea: Assessment and Plan: Patient could not tolerate CPAP. She was advised regarding the importance of wearing it on regular basis. Also she was advised to try to lose weight (6) Obesity: Assessment and Plan: Patient was advised to follow low calorie low-carb diet and exercise in order to lose weight (7) Tobacco abuse: Assessment and Plan: Used to smoke 2 packs/day for about 10 years. She quit in 1988 for I think I am saying
[2024-04-04] MEDS: METOPROLOL TARTRATE 50 MG TABLET PO ×2 (16:54→21:53)
--- NOTE | 2024-04-04 16:58 | PM.CAPN ---
Progress Note: A&P Assessment and Plan (1) Elevated troponin: (2) Acute dehydration: (3) Hypertension: (4) Hyperlipidemia associated with type 2 diabetes mellitus: (5) Sleep apnea: (6) Obesity: (7) Tobacco abuse: Subjective Subjective Principal diagnosis: Elevated troponin Interval history: Just had a stress test done which showed a small fixed defect in the mid inferior wall but the left ventricle systolic function was normal indicating that this is an attenuation artifact. I think overall the patient stress test is normal and no need for further cardiac workup in that regard. If patient blood pressure gets controlled later in the day she can be discharged home and follow-up with cardiology in 2 weeks. That was discussed with the patient's nurse Exam Constitutional Vital Signs, click to edit/add: Last Vital Signs Temp 98.3 F 04/04/24 16:00 Pulse 75 04/04/24 16:00 Resp 18 04/04/24 16:00 BP 198/98 H 04/04/24 16:00 Pulse Ox 97 04/04/24 16:00 O2 Del Method Room Air 04/04/24 16:00
[2024-04-04] MEDS: INSULIN ASPART 300 UNIT/3 ML PEN SUBQ (17:20)
--- NOTE | 2024-04-04 18:11 | ECG_ITS ---
[facility] Test Date: 2024-04-04 Pat Name: RAMON VALDES Department: Room: [facility] Gender: Female [place]: : 1970 Requested By: ELYSSA BECK Order Number: [id number] Reading MD: ELYSSA BECK Measurements Intervals [place] Rate: 71 P: 15 MA: 122 QRS: 27 QRSD: 88 T: 36 QT: 385 QTc: 418 Interpretive Statements SINUS RHYTHM Compared to ECG 04/04/2024 05:33:20 No significant changes Electronically Signed On 04-05-2024 5:25:47 EDT by ELYSSA BECK
[2024-04-04 19:12] LABS: Basophils Absolute Auto 0.1 10^3/uL (0.0-0.1); Basophils Percent Auto 0.3 % (0.2-2.0); Eosinophils Absolute Auto 0.1 10^3/uL (0.0-0.7); Eosinophils Percent Auto 0.5 % (0.9-7.0); Hematocrit 37.6 % (36.0-48.0); Hemoglobin 12.2 g/dL (12.0-16.0); Immature Granulocytes Abs Auto 0.15 10^3/uL (0.00-0.03); Immature Granulocytes Pct Auto 0.7 % (0.0-0.5); Lymphocytes Percent Auto 9.2 % (20.5-60.0); Mean Corpuscular HGB Conc 32.4 g/dL (29.9-35.2); Mean Corpuscular Hemoglobin 28.2 pg (26.7-34.0); Mean Platelet Volume 9.5 fL (9.5-13.5); Monocytes Absolute Auto 0.4 10^3/uL (0.3-0.8); Monocytes Percent Auto 1.7 % (1.7-12.0); Neutrophils Absolute Auto 18.9 10^3/uL (1.4-6.5); Neutrophils Percent Auto 87.6 % (43.0-75.0); Platelet Count 367 10^3/uL (150-450); Red Blood Count 4.32 10^6/uL (4.20-5.40); Red Cell Distribution Width 17.1 % (11.0-15.0); White Blood Count 21.6 10^3/uL (4.0-11.0)
[2024-04-04 19:46] LABS: Alanine Aminotransferase 65 U/L (14-59); Albumin Globulin Ratio 0.8; Albumin Level 3.3 g/dL (3.4-5.0); Alkaline Phosphatase 120 U/L (46-116); Anion Gap 16.1; Aspartate Amino Transferase 41 U/L (15-37); BUN Creatinine Ratio 7.8; Bilirubin Total 0.6 mg/dL (0.2-1.0); Calcium 8.9 mg/dL (8.5-10.1); Carbon Dioxide 22.6 mmol/L (21.0-32.0); Chloride 99 mmol/L (98-107); Estimated GFR (African America >60 (>=60); Estimated GFR (Non-African Ame >60 (>=60); Globulin 4.4 g/dL; Glucose 210 mg/dL (74-106); Potassium 3.7 mmol/L (3.5-5.1); Sodium 134 mmol/L (136-145); Total Protein 7.7 g/dL (6.4-8.2)
[2024-04-04] MEDS: ALPRAZOLAM 0.25 MG TABLET PO (19:46)
[2024-04-04] MEDS: ACETAMINOPHEN 500 MG TABLET 1000 MG PO (19:46)
[2024-04-04 19:57] LABS: PTT Heparin Monitor 109.3 sec (48.2-68.6); Troponin I High Sensitivity 72.9 pg/mL (4.0-51.3)
[2024-04-04 20:05] LABS: Glucometer 209 mg/dL (74-106)
[2024-04-04] MEDS: QUETIAPINE FUMARATE 100 MG TABLET PO (21:53)
[2024-04-05] VITALS (10 sets, daily range): BP systolic 114–132; BP diastolic 70–81; PULSE 67–77; TEMP 36.7–36.8; O2SAT 94–96
[2024-04-05] MEDS: PIPERACILLIN SODIUM/TAZOBACTAM 3.375 GM in 0.9 % SODIUM CHLORIDE 50 ML IV (02:08)
[2024-04-05] MEDS: MAGNESIUM SULFATE/WATER 2 GM/50 ML PREMIX IV (02:08)
[2024-04-05 02:46] LABS: PTT Heparin Monitor 28.2 sec (48.2-68.6)
[2024-04-05] MEDS: HEPARIN SODIUM,PORCINE/D5W 25,000 UNIT/500 ML IV.SOLN 26.16 UNIT IV (04:55)
[2024-04-05 05:42] LABS: PCO2 VBG 42.6 mmHg (40.0-52.0); pH VBG 7.404 (7.330-7.430)
[2024-04-05 05:43] LABS: Basophils Percent Auto 0.2 % (0.2-2.0); Eosinophils Absolute Auto 0.1 10^3/uL (0.0-0.7); Eosinophils Percent Auto 0.3 % (0.9-7.0); Hematocrit 36.6 % (36.0-48.0); Hemoglobin 11.7 g/dL (12.0-16.0); Immature Granulocytes Abs Auto 0.12 10^3/uL (0.00-0.03); Immature Granulocytes Pct Auto 0.6 % (0.0-0.5); Lymphocytes Absolute Auto 2.3 10^3/uL (1.2-3.8); Lymphocytes Percent Auto 11.2 % (20.5-60.0); Mean Corpuscular Hemoglobin 28.1 pg (26.7-34.0); Mean Corpuscular Volume 87.8 fL (81.0-99.0); Mean Platelet Volume 9.9 fL (9.5-13.5); Monocytes Absolute Auto 0.9 10^3/uL (0.3-0.8); Monocytes Percent Auto 4.5 % (1.7-12.0); Neutrophils Absolute Auto 17.2 10^3/uL (1.4-6.5); Neutrophils Percent Auto 83.2 % (43.0-75.0); Platelet Count 423 10^3/uL (150-450); Red Blood Count 4.17 10^6/uL (4.20-5.40); White Blood Count 20.6 10^3/uL (4.0-11.0)
--- NOTE | 2024-04-05 06:00 | ECG_ITS ---
[facility] Test Date: 2024-04-05 Pat Name: RAMON VALDES Department: Room: [facility] Gender: Female Recruiting Consultant: : 1970 Requested By: ELYSSA BECK Order Number: [id number] Reading MD: ELYSSA BECK Measurements Intervals [place] Rate: 66 P: -2 UT: 129 QRS: 23 QRSD: 97 T: 25 QT: 441 QTc: 462 Interpretive Statements SINUS RHYTHM Non-Specific T wave inversion in III Compared to ECG 04/04/2024 18:54:04 No significant changes Electronically Signed On 04-06-2024 5:36:40 EDT by ELYSSA BECK
[2024-04-05 06:10] LABS: Alanine Aminotransferase 50 U/L (14-59); Albumin Globulin Ratio 0.8; Albumin Level 3.1 g/dL (3.4-5.0); Alkaline Phosphatase 110 U/L (46-116); Anion Gap 10.6; Aspartate Amino Transferase 21 U/L (15-37); BUN Creatinine Ratio 11.1; Bilirubin Total 0.5 mg/dL (0.2-1.0); Calcium 8.8 mg/dL (8.5-10.1); Carbon Dioxide 26.5 mmol/L (21.0-32.0); Chloride 99 mmol/L (98-107); Estimated GFR (African America >60 (>=60); Estimated GFR (Non-African Ame >60 (>=60); Globulin 3.9 g/dL; Glucose 182 mg/dL (74-106); Magnesium 2.6 mg/dL (1.8-2.4); Potassium 3.1 mmol/L (3.5-5.1); Sodium 133 mmol/L (136-145)
[2024-04-05 06:12] LABS: Troponin I High Sensitivity 82.5 pg/mL (4.0-51.3)
[2024-04-05] MEDS: CLINDAMYCIN PHOSPHATE/D5W 600 MG/50 ML PIGGYBACK 100 MG IV ×2 (06:52→11:48)
[2024-04-05 08:42] LABS: Partial Thromboplastin Time 26.3 sec (22.3-36.2)
--- NOTE | 2024-04-05 08:42 | CM.NOTE ---
Rounds made with Dr. Lam. Potential discharge after repeat labs at 1100. Follow up with PCP in a week.
--- NOTE | 2024-04-05 08:46 | P.DS_ITS ---
DS: Providers Provider Date of admission: 04/02/24 12:00 Primary care physician: Chelly Luna NP Consults: 04/02/24 11:27 Consult to Pharmacy Routine Consulting Provider: Reason for consultation: Please Hyder me when Med Rec is Updated Has provider been notified: No Occupational Therapy Eval and Treat Routine Reason for consultation: Only if needed for Rehab Has provider been notified: No Physical Therapy Eval and Treat Routine Reason for consultation: Eval and Treat Has provider been notified: No 04/03/24 07:58 Consult to Cardiology Routine Reason for consultation: + trop Has provider been notified: No 04/04/24 08:23 Consult to Pharmacy Routine Consulting Provider: Reason for consultation: does SS heparin need adjusted - only one level in therapeutic range Has provider been notified: No DS: Diagnosis Discharge Diagnosis (1) Elevated troponin: (2) Acute dehydration: (3) Hypertension: (4) Hyperlipidemia associated with type 2 diabetes mellitus: (5) Sleep apnea: (6) Obesity: (7) Tobacco abuse: Plan Admission findings: Sinus tachycardia, respiratory distress, currently uncontrolled hypertension, leukocytosis, lactic acidosis, hyperglycemia, acute kidney injury, hypokalemia, thrombocythemia, elevated high-sensitivity troponin likely secondary to severe sepsis due to acute UTI. Improving at the time of discharge Dehydration and severe sepsis secondary to acute UTI-white blood cell count is improving, is back to baseline normal, culture still pending. Stable at the time of discharge Elevated high-sensitivity troponin with a normal EKG, possible acute coronary syndrome with demand ischemia-stable at the time of discharge Thrombocythemia-continue to monitor, improving at the time of discharge Hypokalemia-supplement improved to baseline today stable at discharge Acute kidney injury-improvement the time of discharge Hyperglycemia-insulin sliding scale Hypokalemia-Down somewhat at the time of discharge, will monitor as an outpatient Hypomagnesemia-elevated at time of discharge, can hold on supplementation Acute anemia-check stool for occult blood loss. Hemoccult pending Elevated BNP-this is likely secondary again to demand ischemia. Resolved Significant monocytosis on initial blood work-stable Moderate protein calorie malnutrition-diet management Admission status: Patient with severe sepsis as outlined above, positive troponin secondary to demand ischemia and possible acute coronary syndrome- medically necessary treatment will span 2 midnights. Inpatient status. DS: Summary Hospital Course Hospital Course: Patient admitted through the emergency room with severe fatigue, general myalgias, laboratory evaluation consistent with severe sepsis. He was started on IV antibiotics. She had elevated high-sensitivity troponin. Case was discussed with cardiology. With normal EKG they felt this was more likely related to the infectious process. Demand ischemia. She was placed on heparin drip however until a stress test was completed yesterday. She did pass the stress test but had significant reaction to the test itself. Significant hypertension. Difficult to maintain yesterday. Approximately 6 hours ago patient finally feels much improved. Her blood pressure is back to baseline. Her white cell count was significantly elevated this morning. This is possibly stress reaction from yesterday's events. Repeating CBC later this morning. If CBC is improving patient feels back to much improved but still somewhat fatigued, for her normal self. At this point she will be likely be discharged home later today if her white blood cell count is improving. Medications see list. Cultures pending for urinalysis can be followed up as an outpatient with her PCP. See PCP within the next week. Time Spent with Patient Time attestation: Total time spent providing and/or coordinating discharge services: Exam Constitutional Vital Signs, click to edit/add: Last Vital Signs Temp 98.1 F 04/05/24 04:00 Pulse 71 04/05/24 08:00 Resp 18 04/05/24 04:00 BP 114/70 04/05/24 04:00 Pulse Ox 94 L 04/05/24 04:00 O2 Del Method Room Air 04/05/24 04:00 Documenting provider has reviewed patient's vital signs: yes Common normals: no apparent distress (Looks much from admission.) [facility] Common normals: normocephalic; oral mucous membranes not moist (Dry mucous membranes) Chest Common normals: inspection of chest normal and palpation of chest normal Respiratory Common normals: normal respiratory effort, no retractions and no use of accessory muscles Cardio Common normals: regular rate and regular rhythm Rate: not tachycardic GI Common normals: Normal to inspection, nondistended, normoactive bowel sounds present, soft to palpation, non-tender and no hepatosplenomegaly Extremity Common normals: normal to inspection, full ROM and normal capillary refill DS: Data Data Completed and Pending Labs on day of discharge: Labs from last 24 hours 04/05/24 04/05/24 04/04/24 05:00 02:10 20:03 WBC 20.6 H RBC 4.17 L Hgb 11.7 L Hct 36.6 MCV 87.8 MCH 28.1 MCHC 32.0 RDW 17.0 H Plt Count 423 MPV 9.9 Neut % (Auto) 83.2 H Lymph % (Auto) 11.2 L Overton % (Auto) 4.5 Eos % (Auto) 0.3 L Baso % (Auto) 0.2 Neut # (Auto) 17.2 H Lymph # (Auto) 2.3 Overton # (Auto) 0.9 H Eos # (Auto) 0.1 Baso # (Auto) 0.0 Abs Immat Gran (auto) 0.12 H Imm/Tot Granulo (auto) 0.6 H PTT (Heparin Absorb) 28.2 L* VBG pH 7.404 VBG pCO2 42.6 Sodium 133 L Potassium 3.1 L Chloride 99 Carbon Dioxide 26.5 Anion Gap 10.6 BUN 8.0 Creatinine 0.72 Est GFR ( Amer) >60 Est GFR (Non-Af Amer) >60 BUN/Creatinine Ratio 11.1 Glucose 182 H Calcium 8.8 Magnesium 2.6 H Total Bilirubin 0.5 AST 21 ALT 50 Alkaline Phosphatase 110 Troponin I High Sens 82.5 H* NT-Pro-B Natriuret Pep 2261.0 H* Total Protein 7.0 Albumin 3.1 L Globulin 3.9 Albumin/Globulin Ratio 0.8 POC Glucose 209 H 04/04/24 04/04/24 04/04/24 19:04 16:04 14:26 WBC 21.6 H RBC 4.32 Hgb 12.2 Hct 37.6 MCV 87.0 MCH 28.2 MCHC 32.4 RDW 17.1 H Plt Count 367 MPV 9.5 Neut % (Auto) 87.6 H Lymph % (Auto) 9.2 L Overton % (Auto) 1.7 Eos % (Auto) 0.5 L Baso % (Auto) 0.3 Neut # (Auto) 18.9 H Lymph # (Auto) 2.0 Overton # (Auto) 0.4 Eos # (Auto) 0.1 Baso # (Auto) 0.1 Abs Immat Gran (auto) 0.15 H Imm/Tot Granulo (auto) 0.7 H PTT (Heparin Absorb) 109.3 H* 27.3 L* VBG pH VBG pCO2 Sodium 134 L Potassium 3.7 Chloride 99 Carbon Dioxide 22.6 Anion Gap 16.1 BUN 6.0 L Creatinine 0.77 Est GFR ( Amer) >60 Est GFR (Non-Af Amer) >60 BUN/Creatinine Ratio 7.8 Glucose 210 H Calcium 8.9 Magnesium Total Bilirubin 0.6 AST 41 H ALT 65 H Alkaline Phosphatase 120 H Troponin I High Sens 72.9 H* NT-Pro-B Natriuret Pep 549.0 Total Protein 7.7 Albumin 3.3 L Globulin 4.4 Albumin/Globulin Ratio 0.8 POC Glucose 220 H 04/04/24 08:20 WBC RBC Hgb Hct MCV MCH MCHC RDW Plt Count MPV Neut % (Auto) Lymph % (Auto) Overton % (Auto) Eos % (Auto) Baso % (Auto) Neut # (Auto) Lymph # (Auto) Overton # (Auto) Eos # (Auto) Baso # (Auto) Abs Immat Gran (auto) Imm/Tot Granulo (auto) PTT (Heparin Absorb) 73.8 H* VBG pH VBG pCO2 Sodium Potassium Chloride Carbon Dioxide Anion Gap BUN Creatinine Est GFR ( Amer) Est GFR (Non-Af Amer) BUN/Creatinine Ratio Glucose Calcium Magnesium Total Bilirubin AST ALT Alkaline Phosphatase Troponin I High Sens NT-Pro-B Natriuret Pep Total Protein Albumin Globulin Albumin/Globulin Ratio POC Glucose Preliminary micro results at discharge 04/01/24 17:42 Blood Culture Result 1 - Preliminary Blood NO GROWTH AT 36-48 HOURS. FINAL TO FOLLOW. 04/01/24 17:30 Blood Culture Result 1 - Preliminary Blood NO GROWTH AT 36-48 HOURS. FINAL TO FOLLOW. Discharge Plan Discharge Disposition: Home, Self-Care Condition: Good Discharge Medications: New metoprolol tartrate 50 mg Tablet 50 mg PO BID Qty: 60 11RF cefdinir 300 mg capsule 600 mg PO DAILY Qty: 20 0RF Continued cyclobenzaprine 10 mg tablet 10 mg PO BID PRN (Reason: muscle spasm) gabapentin 600 mg tablet 600 mg PO .q6 atorvastatin 10 mg tablet 10 mg PO .qd Patient Comments: PT TAKES IN THE MORNING tizanidine 4 mg tablet 4 mg PO .qhs PRN (Reason: muscle spasticity) lisinopril 20 mg tablet 20 mg PO .qd aspirin 81 mg tablet,delayed release (DR/EC) 81 mg PO .qd amitriptyline 10 mg tablet 10 mg PO .qhs docusate sodium 100 mg capsule 100 mg PO .qd omeprazole 20 mg capsule,delayed release(DR/EC) 20 mg PO .qd loratadine 10 mg tablet 10 mg PO .qd metoclopramide HCl 10 mg tablet 10 mg PO .qd insulin lispro 100 unit/mL insulin pen 10 unit SUBCUT TIDWM duloxetine 60 mg capsule,delayed release(DR/EC) 60 mg PO .amhs quetiapine 50 mg tablet 100 mg PO .qhs insulin glargine [Lantus Solostar U-100 Insulin] 100 unit/mL (3 mL) insulin pen 35 unit SUBCUT BID Discontinued carvedilol 12.5 mg tablet 12.5 mg PO Q12H amlodipine 10 mg tablet 10 mg PO .qd metoprolol succinate 25 mg tablet extended release 24 hr 25 mg PO .qd Print Language: Danish Forms: Portal Instructions Follow Up Appointments: April 13 @ 11:30am with Chelly Luna NP [phone]
[2024-04-05] MEDS: POTASSIUM CHLORIDE 40 MEQ in 0.9 % SODIUM CHLORIDE 250 ML 67.5 MEQ IV ×2 (09:49→09:57)
[2024-04-05] MEDS: CEFTAZIDIME 2,000 MG in 0.9 % SODIUM CHLORIDE 100 ML 200 MG IV (09:49)
[2024-04-05] MEDS: METOPROLOL TARTRATE 50 MG TABLET PO (09:50)
[2024-04-05] MEDS: DOCUSATE SODIUM 100 MG CAPSULE PO (09:50)
[2024-04-05] MEDS: CETIRIZINE HCL 10 MG TABLET PO (09:51)
[2024-04-05] MEDS: ASPIRIN 81 MG TAB.CHEW PO (09:51)
[2024-04-05] MEDS: DULOXETINE HCL 60 MG CAPSULE.DR PO (09:51)
[2024-04-05] MEDS: METOCLOPRAMIDE HCL 10 MG TABLET PO (09:51)
[2024-04-05] MEDS: LISINOPRIL 20 MG TABLET PO (09:51)
[2024-04-05] MEDS: GABAPENTIN 300 MG CAPSULE 600 MG PO (09:51)
[2024-04-05] MEDS: ATORVASTATIN CALCIUM 10 MG TABLET PO (09:51)
[2024-04-05] MEDS: NITROGLYCERIN 2% 1 GRAM PACKET 1 GM TD (09:55)
[2024-04-05] MEDS: PANTOPRAZOLE SODIUM 40 MG VIAL IV (09:56)
[2024-04-05] MEDS: POTASSIUM CHLORIDE 10 MEQ ER TABLET 40 MEQ PO (10:03)
[2024-04-05] MEDS: INSULIN ASPART 300 UNIT/3 ML PEN SUBQ (11:14)
[2024-04-05 11:15] LABS: Basophils Absolute Auto 0.1 10^3/uL (0.0-0.1); Basophils Percent Auto 0.3 % (0.2-2.0); Eosinophils Absolute Auto 0.3 10^3/uL (0.0-0.7); Eosinophils Percent Auto 1.4 % (0.9-7.0); Hematocrit 32.4 % (36.0-48.0); Hemoglobin 10.3 g/dL (12.0-16.0); Immature Granulocytes Pct Auto 0.5 % (0.0-0.5); Lymphocytes Absolute Auto 3.7 10^3/uL (1.2-3.8); Lymphocytes Percent Auto 18.6 % (20.5-60.0); Mean Corpuscular HGB Conc 31.8 g/dL (29.9-35.2); Mean Corpuscular Hemoglobin 28.4 pg (26.7-34.0); Mean Corpuscular Volume 89.3 fL (81.0-99.0); Mean Platelet Volume 9.5 fL (9.5-13.5); Monocytes Absolute Auto 1.2 10^3/uL (0.3-0.8); Monocytes Percent Auto 5.8 % (1.7-12.0); Neutrophils Absolute Auto 14.7 10^3/uL (1.4-6.5); Neutrophils Percent Auto 73.4 % (43.0-75.0); Platelet Count 371 10^3/uL (150-450); Red Blood Count 3.63 10^6/uL (4.20-5.40); Red Cell Distribution Width 17.2 % (11.0-15.0)
--- NOTE | 2024-04-06 11:53 | CM.DCFOLLOWU ---
1st attempt 04/06/24
--- NOTE | 2024-04-07 14:22 | CM.DCFOLLOWU ---
2nd attempt 04/07/24
--- NOTE | 2024-04-08 11:53 | CM.DCFOLLOWU ---
3rd attempt 04/08/24
== END 2024-04-05 12:42 | disposition home or self-care (01) | DRG 720 ==
LOC: ER 04-02 10:18 → MS 04-02 12:03
PROVIDERS: Emergency Medicine; Physician Assistant; Registered Nurse; Admitting Provider Family Medicine; Emergency Provider Internal Medicine; PCP Nurse Practitioner; Visit Provider Family Medicine
DX: A41.9 Sepsis, unspecified organism (principal); R65.20 Severe sepsis without septic shock; I10 Essential (primary) hypertension; E87.20 Acidosis, unspecified; N39.0 Urinary tract infection, site not specified; N17.9 Acute kidney failure, unspecified; E87.6 Hypokalemia; D75.839 Thrombocytosis, unspecified; E86.0 Dehydration; R79.89 Other specified abnormal findings of blood chemistry; D72.821 Monocytosis (symptomatic); R11.2 Nausea with vomiting, unspecified; D64.9 Anemia, unspecified; E44.0 Moderate protein-calorie malnutrition; Z68.41 Body mass index [BMI] 40.0-44.9, adult; R55 Syncope and collapse; R06.03 Acute respiratory distress; E11.65 Type 2 diabetes mellitus with hyperglycemia; D69.6 Thrombocytopenia, unspecified; I24.89 Other forms of acute ischemic heart disease; E78.5 Hyperlipidemia, unspecified; G47.30 Sleep apnea, unspecified; E66.9 Obesity, unspecified; Z87.891 Personal history of nicotine dependence; I24.9 Acute ischemic heart disease, unspecified; Z79.4 Long term (current) use of insulin; Z79.82 Long term (current) use of aspirin; K21.9 Gastro-esophageal reflux disease without esophagitis
CPT/HCPCS: 36415; 36416; 36569; 36592; 36600; 70450; 71045; 71275; 74176; 78452; 80053; 81001; 82009; 82800; 82805; 82948; 83605; 83690; 83735; 83880; 84145; 84443; 84484; 85025; 85610; 85730; 86308; 87040; 87045; 87046; 87070; 87086; 87427; 87493; 93005; 93017; 93306; 94667; 94668; 94761; 96361; 96365; 96366; 96367; 96368; 96374; 96375; 96376; 97161; 97165; 99285; A9500; C1887; G0328; J0360; J0713; J0780; J1644; J2060; J2404; J2405; J2543; J2765; J2785; J3475; J3480; Q9967

== ENCOUNTER 2024-08-06 19:09 | Emergency (ER) | payer OTHER, SELFPAY ==
[2024-08-06 19:13] VITALS: BP 136/89; PULSE 70; TEMP 36.6; O2SAT 100; BMI 40.9
--- NOTE | 2024-08-06 19:22 | XR_ITS ---
The [address] [address] Patient Name: RAMON VALDES MRN: [id number] date: 1970 Sex: F Assigned Patient Location: ER Current Patient Location: Accession/Order Number: [id number] Exam Date: 08/06/2024 19:40 Report Date: 08/06/2024 21:44 At the request of: NILSA LEE Procedure: XR lumbar spine 2-3V EXAM: XR lumbar spine 2-3V HISTORY: The patient is a 54-year-old female, pain COMPARISON: MRI of the lumbar spine from 02/12/2023. 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 There is no radiographic evidence of fracture or loss of vertebral body height throughout the lumbar spine. There is no malalignment. The sacroiliac joints are maintained. There is moderate to severe narrowing of the L5-S1 disc with a laminectomy at L5, and similar findings were present on the prior MRI from 02/12/2023. There is mild narrowing of the L1-L2 and L2-L3 discs, unchanged. XR/XR lumbar spine 2-3V IMPRESSION: Degenerative disc disease similar to that seen on the MRI of 02/12/2023. Electronically authenticated by: NAYA DOUGLAS Date: 08/06/2024 21:44
--- NOTE | 2024-08-06 19:28 | ED.BACK1 ---
HPI HPI - Back Pain/Injury General Chief Complaint: Back Pain/Injury Stated Complaint: BACK PAIN Time Seen by Provider: 08/06/24 19:19 Source: patient Mode of arrival: walk-in Limitations: no limitations History of Present Illness HPI Narrative: 84-year-old female presents here with chief complaint of left lower lumbar pain with radiation down the left lower extremity. She states she has had a history of sciatica in the past. She also has had a discectomy several years ago. She states she was helping a friend lift up a family member and felt a pull in her lower lumbar area. She denies any loss of bowel or bladder function. The injury occurred 2 days ago. She has been taking [id number] Aleve without relief at home. She did ambulate here into the emergency room. Related Data Home Medications ?Medication ?Instructions ?Recorded ?Confirmed amitriptyline 10 mg tablet 10 mg PO .qhs 04/01/24 04/02/24 aspirin 81 mg tablet,delayed 81 mg PO .qd 04/01/24 04/02/24 release atorvastatin 10 mg tablet 10 mg PO .qd 04/01/24 04/02/24 cyclobenzaprine 10 mg tablet 10 mg PO BID PRN muscle spasm 04/01/24 04/02/24 docusate sodium 100 mg capsule 100 mg PO .qd 04/01/24 04/02/24 duloxetine 60 mg capsule,delayed 60 mg PO .amhs 04/01/24 04/02/24 release gabapentin 600 mg tablet 600 mg PO .q6 04/01/24 04/02/24 insulin glargine 100 unit/mL (3 35 unit subcut BID 04/01/24 04/02/24 mL) subcutaneous pen (Lantus Solostar U-100 Insulin) insulin lispro 100 unit/mL 10 unit subcut TIDWM 04/01/24 04/02/24 subcutaneous pen lisinopril 20 mg tablet 20 mg PO .qd 04/01/24 04/02/24 loratadine 10 mg tablet 10 mg PO .qd 04/01/24 04/02/24 metoclopramide HCl 10 mg tablet 10 mg PO .qd 04/01/24 04/02/24 omeprazole 20 mg capsule,delayed 20 mg PO .qd 04/01/24 04/02/24 release quetiapine 50 mg tablet 100 mg PO .qhs 04/01/24 04/02/24 tizanidine 4 mg tablet 4 mg PO .qhs PRN muscle spasticity 04/01/24 04/02/24 Previous Rx's ?Medication ?Instructions ?Recorded cefdinir 300 mg capsule 600 mg (2 x 300 mg) PO DAILY #20 04/05/24 caps metoprolol tartrate 50 mg tablet 50 mg PO BID #60 tabs 04/05/24 ibuprofen 800 mg tablet 800 mg PO Q8H PRN pain #20 tabs 08/06/24 methocarbamol 500 mg tablet 500 mg PO TID PRN pain #10 tabs 08/06/24 Allergies Allergy/AdvReac Type Severity Reaction Status Date / Time mustard Allergy Severe Anaphylaxis Verified 08/06/24 19:17 tomato Allergy Unknown Verified 08/06/24 19:17 brown coating on advil Allergy Swelling Uncoded 08/06/24 19:17 of Lip/Tongue/Throat Opioid HPI Opioid Management Most Recent Opioid Data: Last Pain Scale 9 08/06/24 19:46 08/06/24 Last ORT Total Score 0 04/02/24 12:04 04/02/24 Last ORT Risk Category Low Risk 04/02/24 12:04 04/02/24 Review of Systems ROS Narrative All Systems are negative except as noted/marked.All systems reviewed and otherwise negative [facility] Medical History Tobacco abuse ?Z72.0 - Tobacco use (ICD-10) Family History Other Family history of diabetes mellitus Heart disease Social History Highest level of school completed/degree received: high school graduate Little interest or pleasure in doing things: not at all Feeling down, depressed, or hopeless: not at all Exam Narrative Exam Narrative: Nurses note and vital signs reviewed and patient is not hypoxic. General: The patient appears well and in no apparent distress. Patient is resting comfortably on cart. Skin: Warm, dry, no pallor noted. There is no rash noted. Head: Normocephalic, atraumatic Eye: Normal conjunctiva, no drainage, EOMI. PERRL Respiratory: Patient is in no distress, no accessory muscle use, lungs are clear to auscultation, no wheezing, rales or rhonchi Back: non-tender, no CVA tenderness bilaterally to percussion. GI: Normal bowel sounds, no tenderness to palpation, no masses appreciated. No rebound, guarding, or rigidity noted. Musculoskeletal: Weakness, 5 out of 5 bilateral lower extremity, full range of motion, no foot drop , the patient has no evidence of calf tenderness, no pitting edema, symmetrical pulses noted bilaterally Neurological: A&O x4, normal speech Psychiatric: Cooperative Constitutional Vital Signs, click to edit/add: Last Vital Signs Temp 97.9 F 08/06/24 19:13 Pulse 70 08/06/24 19:13 Resp 16 08/06/24 19:13 BP 136/89 08/06/24 19:13 Pulse Ox 100 08/06/24 19:13 O2 Del Method Room Air 08/06/24 19:13 Course Vital Signs Vital signs: Vital Signs Temperature 97.9 F 08/06/24 19:13 Pulse Rate 70 08/06/24 19:13 Respiratory Rate 16 08/06/24 19:13 Blood Pressure 136/89 08/06/24 19:13 Pulse Oximetry 100 08/06/24 19:13 Oxygen Delivery Method Room Air 08/06/24 19:13 Temperature 97.9 F 08/06/24 19:13 Pulse Rate 70 08/06/24 19:13 Respiratory Rate 16 08/06/24 19:13 Blood Pressure 136/89 08/06/24 19:13 Pulse Oximetry 100 08/06/24 19:13 Oxygen Delivery Method Room Air 08/06/24 19:13 MDM - Back Pain/Injury MDM Narrative Medical decision making narrative: Chief complaint of lower lumbar strain after lifting somebody 2 days ago. X-rays were reviewed and showed no acute abnormalities alignment does appear normal. She does have some spurring noted. Patient was medicated here with Norflex and Toradol states her pain has improved. She is going to follow-up with her primary care physician. Discharged home with Motrin and Robaxin. Patient agrees with plan of care. Patient had no signs of quad equina. Denies numbness tingling loss of bowel or bladder function. Differential Diagnosis Differential diagnosis: Likely strain of lumbar region Medical Records Attestation: I reviewed the patient's medical records. Discharge Plan Discharge Chief Complaint: Back Pain/Injury Clinical Impression: Strain of lumbar region, Sciatica Patient Disposition: Home, Self-Care Time of Disposition Decision: 20:11 Condition: Good Prescriptions / Home Meds: New methocarbamol 500 mg tablet 500 mg PO TID PRN (Reason: pain) Qty: 10 0RF ibuprofen 800 mg tablet 800 mg PO Q8H PRN (Reason: pain) Qty: 20 0RF No Action cyclobenzaprine 10 mg tablet 10 mg PO BID PRN (Reason: muscle spasm) gabapentin 600 mg tablet 600 mg PO .q6 atorvastatin 10 mg tablet 10 mg PO .qd Patient Comments: PT TAKES IN THE MORNING tizanidine 4 mg tablet 4 mg PO .qhs PRN (Reason: muscle spasticity) lisinopril 20 mg tablet 20 mg PO .qd aspirin 81 mg tablet,delayed release (DR/EC) 81 mg PO .qd amitriptyline 10 mg tablet 10 mg PO .qhs docusate sodium 100 mg capsule 100 mg PO .qd omeprazole 20 mg capsule,delayed release(DR/EC) 20 mg PO .qd loratadine 10 mg tablet 10 mg PO .qd metoclopramide HCl 10 mg tablet 10 mg PO .qd insulin lispro 100 unit/mL insulin pen 10 unit SUBCUT TIDWM duloxetine 60 mg capsule,delayed release(DR/EC) 60 mg PO .amhs quetiapine 50 mg tablet 100 mg PO .qhs insulin glargine [Lantus Solostar U-100 Insulin] 100 unit/mL (3 mL) insulin pen 35 unit SUBCUT BID metoprolol tartrate 50 mg Tablet 50 mg PO BID Qty: 60 11RF cefdinir 300 mg capsule 600 mg PO DAILY Qty: 20 0RF Print Language: Chinese Instructions: Sciatica (ED), Low Back Strain (ED), P.R.I.C.E. Treatment (ED), Lower Back Exercises (ED) Referrals: Chelly Luna NP [Primary Care Provider] - 1 week
[2024-08-06] MEDS: KETOROLAC TROMETHAMINE 60 MG/2 ML VIAL IM (19:46)
[2024-08-06] MEDS: ORPHENADRINE 60 MG/ 2 ML VIAL IM (19:47)
== END 2024-08-06 20:34 | disposition home or self-care (01) ==
PROVIDERS: Emergency Provider Emergency Medicine; PCP Nurse Practitioner
DX: S39.012A Strain of muscle, fascia and tendon of lower back, initial encounter (principal); X50.0XXA Overexertion from strenuous movement or load, initial encounter; M54.30 Sciatica, unspecified side; Z72.0 Tobacco use
CPT/HCPCS: 72100; 96372; 99284; J1885; J2360